=== PATIENT | female | born 1980 | race Caucasian/White ===

== ENCOUNTER 2016-09-19 14:11 | Emergency (ER) | payer MEDICARE ==
[2016-09-19] MEDS ORDERED: diphenhydrAMINE HCl 25 MG CAP ONE (14:32)
[2016-09-19] MEDS ORDERED: predniSONE 20 MG TAB ONE (14:32)
--- NOTE | 2016-09-19 14:59 | ERRECORD ---
[facility] EMERGENCY RECORD HPI RASH (14:[address] [facility]) CHIEF COMPLAINT: Patient presents for evaluation of pruritis, Patient presents for evaluation of rash. HISTORIAN: History provided by patient, 35F presents with complaints of rash. States that it has been present for the past 6 weeks, but worsened over the past 2-3 days. Describes nighttime pruritis, primarily over forearms and feet. Denies systemic complaints, denies fever or chills. LOCATION: Symptoms are generalized. QUALITY: Rash described as itchy, Rash described as macular. TIME COURSE: Gradual onset of symptoms, Symptoms are worsening. EXACERBATED BY: Patient's condition exacerbated by scratching. RELIEVED BY: Patient's condition relieved by nothing because patient has not tried anything for relief. ROS (14:34 [facility]) CONSTITUTIONAL: Negative constitutional review of systems, Historian denies chills, denies fever. EYES: Negative eye review of systems, Historian denies eye pain, denies vision changes. ENT: Negative ears, nose, throat review of systems, Historian denies rhinorrhea, denies sore throat, denies voice changes. CARDIOVASCULAR: Negative cardiovascular review of systems, Historian denies chest pain, denies palpitations. RESPIRATORY: Negative respiratory review of systems, Historian denies cough, denies shortness of breath. GI: Negative gastrointestinal review of systems, Historian denies abdominal pain, denies constipation, denies diarrhea, denies nausea, denies vomiting. GENITOURINARY FEMALE: Negative genitourinary review of systems, Historian denies dysuria, denies frequency. MUSCULOSKELETAL: Negative musculoskeletal review of systems, Historian denies back pain, denies fall, denies injury. SKIN: Historian reports rash. NEUROLOGIC: Negative neurologic review of systems, Historian denies headache, denies mental status changes, denies paralysis, denies paresthesias, denies sensory changes. HEMO/LYMPHATIC: Normal hematologic/lymphatic system review, Historian denies abnormal blood clotting. ALLERGIC/IMMUNOLOGIC: Normal allergy/immunologic system review, Historian denies frequent infections. PAST MEDICAL HISTORY (14:20 [facility]) MEDICAL HISTORY: Past medical history includes pulmonary disease, asthma. REVIEWED 06/15/16. asthma, chronic back pain verified 09/19/16. FEMALE SURGICAL HISTORY: Surgical history of cholecystectomy, Surgical history of spinal surgery, lumbar. REVIEWED 06/15/16. verified 09/19/16. &a-1R&a+25V*p+0X*b7888C*c202B*c15G*c2P*p-0X&a-25V&a+1R Name: Bethany Higuera : 1980 F35 MedRec: [id number] AcctNum: [id number] Prepared: SatSep 19, 2016 16:28 by Interface Page 1 of 4 pMD [facility] EMERGENCY RECORD PSYCHIATRIC HISTORY: Notes: H/O DEPRESSION. NO LONGER ON ZOLOFT. PATIENT REPORTS TO BEING COMMITTED FOR SUICIDAL IDEATION BUT PATIENT DENIES SUCH. NOT ON ANY PSYCH MEDS. verified 09/19/16. SOCIAL HISTORY: Patient denies alcohol use, Patient denies drug use, Patient has no smoking history. REVIEWED 06/15/16. verified 09/19/16. KNOWN ALLERGIES acetaminophen (Unconfirmed) Darvocet A500: Reaction: Hives, Severity: Severe, Source: Patient Demerol: Reaction: Nausea ketorolac tromethamine (Unconfirmed) lorazepam (Unconfirmed) meperidine HCl (Unconfirmed) propoxyphene napsylate (Unconfirmed) Toradol: Reaction: Hives, Severity: Severe, Source: Patient, - Heart races CURRENT MEDICATIONS No recorded medications VITAL SIGNS (14:15 [facility]) VITAL SIGNS: BP: 119/64, Pulse: 111, Resp: 16, Temp: 98.3 (Oral), Pain: 0, O2 sat: 97 on Room Air, Time: 09/19/2016 14:15. PHYSICAL EXAM (14:[address] [facility]) CONSTITUTIONAL: Vital signs reviewed, Patient afebrile, Pulse normal, Blood pressure normal, Respiratory rate normal, Patient appears non toxic, Patient appears pain free, Patient alert and oriented to person, place and time. HEAD: Head exam normal, Head exam included findings of head atraumatic, normocephalic. EYES: Eye exam normal, Eye exam included findings of eyelids normal to inspection, Pupils equally round and reactive to light, Extraocular muscles intact, no nystagmus. ENT: ENT exam normal, Ear exam normal, external ear normal, tympanic membranes normal, no bleeding, Pharynx exam normal, Uvula exam normal, Tonsil exam normal, Mouth exam normal, mucous membranes moist, teeth normal. NECK: Neck exam normal, Neck exam included findings of normal range of motion, Trachea midline, no meningeal signs, no cervical adenopathy, no tenderness. RESPIRATORY CHEST: Respiratory and chest exam normal, Respiratory exam included findings of no respiratory distress, Breath sounds clear. CARDIOVASCULAR: Cardiovascular assessment normal, Cardiovascular exam included findings of heart rate regular rate and rhythm, Heart sounds normal. ABDOMEN FEMALE: Abdominal exam included findings of abdomen nontender, Bowel sounds normal, no distension, no mass, no pulsatile &a-1R&a+25V*p+0X*a3553S*c202B*c15G*c2P*p-0X&a-25V&a+1R Name: Bethany Higuera : 1980 F35 MedRec: [id number] AcctNum: [id number] Prepared: SatSep 19, 2016 16:28 by Interface Page 2 of 4 pMD [facility] EMERGENCY RECORD masses, no peritoneal signs, no rigidity, no guarding, no rebound, Rovsing's sign absent. BACK: Back exam normal, Back exam included findings of normal inspection, range of motion normal, no tenderness. UPPER EXTREMITY: Upper extremity exam normal, Upper extremity exam included findings of inspection normal, Range of motion normal, Motor strength normal, Sensation intact, Radial pulse normal. LOWER EXTREMITY: Lower extremity exam normal, Lower extremity exam included findings of inspection normal, Range of motion normal, Motor strength normal, Sensation intact, Posterior tibial pulse normal, Pedal pulse normal. NEURO: Neuro exam normal, Neuro exam findings include patient oriented to person, place and time, Speech normal, Gait normal, Cranial nerves intact, no focal motor deficits, no focal sensory deficits. SKIN: Skin exam included findings of skin warm, dry, and normal in color, Rash present, macular, macular rash, no vesicles, no pustules, non erythematous base, no involvement of palms or soles, no mucus membrane involvement. PSYCHIATRIC: Psychiatric exam normal, Normal affect. MEDICATION ADMINISTRATION SUMMARY Drug Name: Benadryl oral, Dose Ordered: 25 mg, Route: Oral, Status: Given, Time: 14:37 09/19/2016, Drug Name: predniSONE oral, Dose Ordered: 60 mg, Route: Oral, Status: Given, Time: 14:37 09/19/2016, Detailed record available in Medication Service section. DOCTOR NOTES (14:[address] [facility]) TEXT: Patient presented with rash consistent with dermatitis/allergic reaction. I am unsure of the exact etiology of the reaction, but believe it is likely a medication, based on her history. No signs of systemic involvement or other underlying condition. No signs of infection or infestation. Will start antihistamines and short course of steroids. Appropriate for outpatient follow up. PATIENT STATUS: Patient has improved since arrival to emergency department. PATIENT PLAN: The patient will be discharged, The patient will follow up with primary care physician. PROBLEM LIST No recorded problems DIAGNOSIS (14:[address] [facility]) FINAL: PRIMARY: dermatitis. PRESCRIPTION (14:[address] [facility]) predniSONE oral: TABLET : 20 mg : ORAL : Quantity: 2 &a-1R&a+25V*p+0X*t9160B*c202B*c15G*c2P*p-0X&a-25V&a+1R Name: Kalen Bethany Alfred : 1980 5 MedRec: [id number] AcctNum: [id number] Prepared: SatSep 19, 2016 16:28 by Interface Page 3 of 4 pMD [facility] EMERGENCY RECORD Unit: tab(s) Route: ORAL Schedule: once a day (after a meal) Dispense: 8 May substitute. Refills: No Refills . NOTES: No refills. DISPOSITION PATIENT: Disposition Type: Discharge, Disposition: *Discharge Home. (14:[address] [facility]) Patient left the department. (14:54 [facility]) Severino: ROLY=JERAMIE Boudreaux, December [facility]=ANKIT Osorio, Hilda [facility]=MD Michelle, Avtar &a-1R&a+25V*p+0X*k7181A*c202B*c15G*c2P*p-0X&a-25V&a+1R Name: Bethany Higuera : 1980 F35 MedRec: [id number] AcctNum: [id number] Prepared: SatSep 19, 2016 16:28 by Interface Page 4 of 4 pMD MTDD
--- NOTE | 2016-09-19 15:05 | PICIS ---
[facility] EMERGENCY RECORD TRIAGE (SatSep 19, 2016 14:17 [facility]) TRIAGE NOTES: Pt reprots she has had an all over body rash for the past six weeks. (SatSep 19, 2016 14:17 [facility]) PATIENT: NAME: Bethany Higuera, AGE: 35, GENDER: female, : Sat 1980, TIME OF GREET: SatSep 19, 2016 14:12, PREFERRED LANGUAGE: Tajik, ETHNICITY: Not or , HIGH ALERT: HIGH ALERT 3, ECODE BILLING MAP: [facility], SSN: [id number], Zip Code: [address], KG WEIGHT: 54.43, PHONE: , , , PERSON ID: [id number], PAYMENT: [employer], PCP: DO CHAN JOHN SCOTT. (SatSep 19, 2016 14:17 [facility]) COMPLAINT: Rash. (SatSep 19, 2016 14:17 [facility]) ADMISSION: URGENCY: 4 Non Urgent, ADMISSION SOURCE: Home, TRANSPORT: CAR, BED: TRIAGE. (SatSep 19, 2016 14:17 [facility]) IMMUNIZATIONS: Flu vaccine up to date, Tetanus immunization up to date, Pneumococcal vaccine not up to date. (14:20 [facility]) SIRS SCORING: Heart Rate 110-139 (2), Temp range 96.8-101.1 (0), respiratory rate 12-24 (0), Mental Status altered: no (0), Total SIRS Score 2. (14:20 [facility]) TRIAGE SCREENING: Patient denies suicidal ideation, Patient denies presence of domestic violence. (14:20 [facility]) LMP: Last menstrual period: 08/29/2016. (14:20 [facility]) PROVIDERS: TRIAGE NURSE: Hilda Osorio RN. (SatSep 19, 2016 14:17 [facility]) VITAL SIGNS: BP 119/64, Pulse 111, Resp 16, Temp 98.3, (Oral), Pain 0, O2 Sat 97, on Room Air, Time 09/19/2016 14:15. (14:15 [facility]) KNOWN ALLERGIES acetaminophen (Unconfirmed) Darvocet A500: Reaction: Hives, Severity: Severe, Source: Patient Demerol: Reaction: Nausea ketorolac tromethamine (Unconfirmed) lorazepam (Unconfirmed) meperidine HCl (Unconfirmed) propoxyphene napsylate (Unconfirmed) Toradol: Reaction: Hives, Severity: Severe, Source: Patient, - Heart races CURRENT MEDICATIONS No recorded medications VITAL SIGNS (14:15 [facility]) VITAL SIGNS: BP: 119/64, Pulse: 111, Resp: 16, Temp: 98.3 (Oral), Pain: 0, O2 sat: 97 on Room Air, Time: 09/19/2016 14:15. NURSING ASSESSMENT: SKIN (14:47 [facility]) CONSTITUTIONAL: Complex assessment performed, Patient arrives ambulatory, Gait steady, History obtained from patient, Patient appears comfortable, Patient cooperative, Patient alert, Oriented to person, place and time, Skin warm, Skin dry, Skin normal in color, &a-1R&a+25V*p+0X*e6981K*c202B*c15G*c2P*p-0X&a-25V&a+1R Name: Bethany Higuera Alfred : 1980 F35 MedRec: [id number] AcctNum: [id number] Prepared: SatSep 19, 2016 16:34 by Interface Page 1 of 6 pMD [facility] EMERGENCY RECORD Mucous membranes pink, Mucous membranes moist, Patient complains of Rash, Rash all over body for the past six weeks which has worsened over the past two days. PAIN: 0. NONVERBAL PAIN: Non-Verbal pain assessment findings include: No non-verbal complaints while at rest (0), Non-Verbal complaints not present with movement (0), Facial Grimaces not present at rest (0), Facial grimaces not present with movement (0), Bracing not present at rest (0), Bracing not present with movement (0), Restlessness not present at rest (0), Restlessness not present with movement (0), Rubbing not present at rest (0), Rubbing not present with movement (0), Result: 0. SKIN: Skin assessment findings include skin warm, Skin dry, Skin normal in color, Inspection findings include no abrasions, Inspection findings include rash, red, macular, itchy, without drainage, to Diffuse, Rash is present all over body except on patients back, Inspection findings include no swelling. SAFETY: Side rails up, Cart/Stretcher in lowest position, Call light within reach, Hospital ID band on. NURSING PROCEDURE: DISCHARGE NOTE (14:45 [facility]) DISCHARGE: Patient discharged to home, ambulating without assistance, driving self, unaccompanied, Summary of Care printed/ provided, Transition record given to patient, Discharge instructions given to patient, Prescriptions given and instructions on side effects given, Above person(s) verbalized understanding of discharge instructions and follow-up care, Patient treated and evaluated by physician. MEDICATION ADMINISTRATION SUMMARY Drug Name: Benadryl oral, Dose Ordered: 25 mg, Route: Oral, Status: Given, Time: 14:37 09/19/2016, Drug Name: predniSONE oral, Dose Ordered: 60 mg, Route: Oral, Status: Given, Time: 14:37 09/19/2016, Detailed record available in Medication Service section. MEDICATION SERVICE (14:37 [facility]) Benadryl oral: Order: Benadryl oral (diphenhydramine HCl) - Dose: 25 mg : Oral Ordered by: Avtar Martinez MD Entered by: Avtar Martinez MD SatSep 19, 2016 14:29 , Acknowledged by: Hilda Osorio RN SatSep 19, 2016 14:31 Documented as given by: Makeda Boudreaux LVN SatSep 19, 2016 14:37 Patient, Medication, Dose, Route and Time verified prior to administration. Amount given: 25mg, Correct patient, time, route, dose and medication confirmed prior to administration, Patient advised of actions and side-effects prior to administration, Allergies confirmed &a-1R&a+25V*p+0X*m9310J*c202B*c15G*c2P*p-0X&a-25V&a+1R Name: KalenBethany Alfred : 1980 F35 MedRec: [id number] AcctNum: [id number] Prepared: SatSep 19, 2016 16:34 by Interface Page 2 of 6 pMD [facility] EMERGENCY RECORD and medications reviewed prior to administration, Patient in position of comfort, Side rails up, Cart in lowest position, Family at bedside. predniSONE oral: Order: predniSONE oral (prednisone) - Dose: 60 mg : Oral Ordered by: Avtar Martinez MD Entered by: Avtar Martinez MD SatSep 19, 2016 14:30 , Acknowledged by: Hilda Osorio RN SatSep 19, 2016 14:31 Documented as given by: Makeda PerezJERAMIE valdez SatSep 19, 2016 14:37 Patient, Medication, Dose, Route and Time verified prior to administration. Amount given: 60mg, Correct patient, time, route, dose and medication confirmed prior to administration, Patient advised of actions and side-effects prior to administration, Allergies confirmed and medications reviewed prior to administration, Patient in position of comfort, Side rails up, Cart in lowest position, Family at bedside. HPI RASH (14:32 [facility]) CHIEF COMPLAINT: Patient presents for evaluation of pruritis, Patient presents for evaluation of rash. HISTORIAN: History provided by patient, 35F presents with complaints of rash. States that it has been present for the past 6 weeks, but worsened over the past 2-3 days. Describes nighttime pruritis, primarily over forearms and feet. Denies systemic complaints, denies fever or chills. LOCATION: Symptoms are generalized. QUALITY: Rash described as itchy, Rash described as macular. TIME COURSE: Gradual onset of symptoms, Symptoms are worsening. EXACERBATED BY: Patient's condition exacerbated by scratching. RELIEVED BY: Patient's condition relieved by nothing because patient has not tried anything for relief. ROS (14:34 [facility]) CONSTITUTIONAL: Negative constitutional review of systems, Historian denies chills, denies fever. EYES: Negative eye review of systems, Historian denies eye pain, denies vision changes. ENT: Negative ears, nose, throat review of systems, Historian denies rhinorrhea, denies sore throat, denies voice changes. CARDIOVASCULAR: Negative cardiovascular review of systems, Historian denies chest pain, denies palpitations. RESPIRATORY: Negative respiratory review of systems, Historian denies cough, denies shortness of breath. GI: Negative gastrointestinal review of systems, Historian denies abdominal pain, denies constipation, denies diarrhea, denies nausea, denies vomiting. GENITOURINARY FEMALE: Negative genitourinary review of systems, Historian denies dysuria, denies frequency. &a-1R&a+25V*p+0X*n4964A*c202B*c15G*c2P*p-0X&a-25V&a+1R Name: Bethany Higuera : 1980 F35 MedRec: [id number] AcctNum: [id number] Prepared: SatSep 19, 2016 16:34 by Interface Page 3 of 6 pMD [facility] EMERGENCY RECORD MUSCULOSKELETAL: Negative musculoskeletal review of systems, Historian denies back pain, denies fall, denies injury. SKIN: Historian reports rash. NEUROLOGIC: Negative neurologic review of systems, Historian denies headache, denies mental status changes, denies paralysis, denies paresthesias, denies sensory changes. HEMO/LYMPHATIC: Normal hematologic/lymphatic system review, Historian denies abnormal blood clotting. ALLERGIC/IMMUNOLOGIC: Normal allergy/immunologic system review, Historian denies frequent infections. PAST MEDICAL HISTORY (14:20 [facility]) MEDICAL HISTORY: Past medical history includes pulmonary disease, asthma. REVIEWED 06/15/16. asthma, chronic back pain verified 09/19/16. FEMALE SURGICAL HISTORY: Surgical history of cholecystectomy, Surgical history of spinal surgery, lumbar. REVIEWED 06/15/16. verified 09/19/16. PSYCHIATRIC HISTORY: Notes: H/O DEPRESSION. NO LONGER ON ZOLOFT. PATIENT REPORTS TO BEING COMMITTED FOR SUICIDAL IDEATION BUT PATIENT DENIES SUCH. NOT ON ANY PSYCH MEDS. verified 09/19/16. SOCIAL HISTORY: Patient denies alcohol use, Patient denies drug use, Patient has no smoking history. REVIEWED 06/15/16. verified 09/19/16. PHYSICAL EXAM (14:34 [facility]) CONSTITUTIONAL: Vital signs reviewed, Patient afebrile, Pulse normal, Blood pressure normal, Respiratory rate normal, Patient appears non toxic, Patient appears pain free, Patient alert and oriented to person, place and time. HEAD: Head exam normal, Head exam included findings of head atraumatic, normocephalic. EYES: Eye exam normal, Eye exam included findings of eyelids normal to inspection, Pupils equally round and reactive to light, Extraocular muscles intact, no nystagmus. ENT: ENT exam normal, Ear exam normal, external ear normal, tympanic membranes normal, no bleeding, Pharynx exam normal, Uvula exam normal, Tonsil exam normal, Mouth exam normal, mucous membranes moist, teeth normal. NECK: Neck exam normal, Neck exam included findings of normal range of motion, Trachea midline, no meningeal signs, no cervical adenopathy, no tenderness. RESPIRATORY CHEST: Respiratory and chest exam normal, Respiratory exam included findings of no respiratory distress, Breath sounds clear. CARDIOVASCULAR: Cardiovascular assessment normal, Cardiovascular exam included findings of heart rate regular rate and rhythm, Heart sounds normal. ABDOMEN FEMALE: Abdominal exam included findings of abdomen nontender, Bowel sounds normal, no distension, no mass, no pulsatile &a-1R&a+25V*p+0X*p8408Q*c202B*c15G*c2P*p-0X&a-25V&a+1R Name: Bethany Higuera : 1980 F35 MedRec: [id number] AcctNum: [id number] Prepared: SatSep 19, 2016 16:34 by Interface Page 4 of 6 pMD [facility] EMERGENCY RECORD masses, no peritoneal signs, no rigidity, no guarding, no rebound, Rovsing's sign absent. BACK: Back exam normal, Back exam included findings of normal inspection, range of motion normal, no tenderness. UPPER EXTREMITY: Upper extremity exam normal, Upper extremity exam included findings of inspection normal, Range of motion normal, Motor strength normal, Sensation intact, Radial pulse normal. LOWER EXTREMITY: Lower extremity exam normal, Lower extremity exam included findings of inspection normal, Range of motion normal, Motor strength normal, Sensation intact, Posterior tibial pulse normal, Pedal pulse normal. NEURO: Neuro exam normal, Neuro exam findings include patient oriented to person, place and time, Speech normal, Gait normal, Cranial nerves intact, no focal motor deficits, no focal sensory deficits. SKIN: Skin exam included findings of skin warm, dry, and normal in color, Rash present, macular, macular rash, no vesicles, no pustules, non erythematous base, no involvement of palms or soles, no mucus membrane involvement. PSYCHIATRIC: Psychiatric exam normal, Normal affect. EVENTS TRANSFER: Triage to Emergency Triage. (SatSep 19, 2016 14:17 [facility]) Emergency Triage to Emergency Room -02. (14:18 [facility]) Removed from Emergency Emergency Room -02. (14:54 [facility]) DOCTOR NOTES (14:36 [facility]) TEXT: Patient presented with rash consistent with dermatitis/allergic reaction. I am unsure of the exact etiology of the reaction, but believe it is likely a medication, based on her history. No signs of systemic involvement or other underlying condition. No signs of infection or infestation. Will start antihistamines and short course of steroids. Appropriate for outpatient follow up. PATIENT STATUS: Patient has improved since arrival to emergency department. PATIENT PLAN: The patient will be discharged, The patient will follow up with primary care physician. PROBLEM LIST No recorded problems DIAGNOSIS (14:38 [facility]) FINAL: PRIMARY: dermatitis. DISPOSITION PATIENT: Disposition Type: Discharge, Disposition: *Discharge Home. (14:38 [facility]) Patient left the department. (14:54 [facility]) &a-1R&a+25V*p+0X*x6599T*c202B*c15G*c2P*p-0X&a-25V&a+1R Name: Bethany Higuera : 1980 F35 MedRec: [id number] AcctNum: [id number] Prepared: SatSep 19, 2016 16:34 by Interface Page 5 of 6 pMD [facility] EMERGENCY RECORD INSTRUCTION (14:39 [facility]) DISCHARGE: ALLERGIC REACTION, DRUG. FOLLOWUP: DO ROCIO, MARCO COLÓN, Family Practice, [address] [place] [address], . SPECIAL: Benadryl at night, Claritin during the day for itching. Follow up with Dr. Chan and Dermatology next available appointment. PRESCRIPTION (14:39 [facility]) predniSONE oral: TABLET : 20 mg : ORAL : Quantity: 2 Unit: tab(s) Route: ORAL Schedule: once a day (after a meal) Dispense: 8 May substitute. Refills: No Refills . NOTES: No refills. IMAGING *DISCHARGE INSTRUCTIONS RECEIPT: Image captured from scanner. (14:53 [facility]) *SUPPLY CHARGE SHEET: Image captured from scanner. (14:54 [facility]) ADMIN (16:25 [facility]) DIGITAL SIGNATURE: MD Martinez Jason. Severino: AHOO=JERAMIE Boudreaux, December CTUR=ANKIT Osorio, Hilda [facility]=MD Martinez Jason &a-1R&a+25V*p+0X*b6491D*c202B*c15G*c2P*p-0X&a-25V&a+1R Name: Bethany Higuera : 1980 F35 MedRec: [id number] AcctNum: [id number] Prepared: SatSep 19, 2016 16:34 by Interface Page 6 of 6 pMD MTDD
== END 2016-09-19 14:45 | disposition home or self-care (01) ==
LOC: BURERS 14:11
DX: L30.9 Dermatitis, unspecified (principal); J45.909 Unspecified asthma, uncomplicated; F32.9 Major depressive disorder, single episode, unspecified
CPT/HCPCS: 99282; J7506

== ENCOUNTER 2016-12-07 19:24 | Emergency (ER) | payer MEDICARE ==
[2016-12-07] MEDS ORDERED: ALPRAZolam 0.5 MG TAB ONE ×2 (19:44→20:44)
[2016-12-07 19:59] LABS: Bacteria/HPF Rare-Few HPF (None Seen); Bilirubin Negative (Negative); Blood, Urine Negative (Negative); Clarity Clear (Clear); Glucose, Urine (Dipstick) Negative (Negative); Leukocyte Small (Negative); Nitrite Negative (Negative); Protein, Urine (Dipstick) Negative (Neg-Trace); RBC/HPF 0-3 HPF (0-3); Specific Gravity, Urine 1.028 (1.002-1.036); pH, Urine 7.5 (5.0-9.0)
[2016-12-07 20:03] LABS: Amphetamine Not Detected (NotDetected); Barbiturates Screen Not Detected (NotDetected); Benzodiazepine Screen Not Detected (NotDetected); Cocaine Metabolite Screen Not Detected (NotDetected); Medtox Control Line Valid? VALID (VALID); Methadone Not Detected (NotDetected); Methamphetamine Not Detected (NotDetected); Opiate Screen Detected (NotDetected); Oxycodone Screen Not Detected (NotDetected); Phencyclidine (PCP) Not Detected (NotDetected); THC/Cannabinoid Screen Not Detected (NotDetected); Tricyclic Screen Not Detected (NotDetected)
[2016-12-07 20:09] LABS: #Basophils 0.1 thou/uL (0.0-0.2); #Eosinphils 0.1 thou/uL (0.0-0.7); #Monocytes 0.4 thou/uL (0.11-0.59); #Neutrophils 2.2 thou/uL (1.40-6.50); %Basophils 1.5 % (0.0-1.0); %Eosinophils 2.9 % (0.0-10.0); %Lymphocytes 40.6 % (21.0-51.0); %Monocytes 9.1 % (0.0-10.0); Hemoglobin 14.2 g/dL (12.0-16.0); Mean Corpuscular HGB CONC 34.1 g/dL (32.0-36.0); Mean Corpuscular Hemoglobin 30.3 pg (27.0-31.0); Mean Corpuscular Volume 89.1 fl (81.0-99.0); Mean Platelet Volume 8.1 fL (7.4-10.4); Platelet Count 191 thou/uL (130-400); RBC Distribution Width 11.9 % (11.5-14.5); Red Blood Cell (RBC) Count 4.69 mill/uL (4.20-5.40); White Blood Cell (WBC) Count 4.8 thou/uL (4.8-10.8)
[2016-12-07 20:26] LABS: ALT (SGPT) 15 U/L (0-55); AST (SGOT) 20 U/L (5-34); Albumin 4.5 g/dL (3.5-5.0); Alkaline Phosphatase 90 U/L (40-150); Anion Gap 15 mmol/L (10-20); BUN (Urea Nitrogen) 11 mg/dL (7.0-18.7); Bilirubin, Total 0.5 mg/dL (0.2-1.2); Calc. Creatinine Clearance 0 mL/min (70-130); Calcium 9.7 mg/dL (7.8-10.44); Carbon Dioxide 19 mmol/L (22-29); Chloride 110 mmol/L (98-107); Estimated GFR-MDRD 80; Globulin 2.7 g/dL (2.4-3.5); Glucose 77 mg/dL (70-105); Potassium 3.7 mmol/L (3.5-5.1); Protein, Total 7.2 g/dL (6.0-8.3); Sodium 140 mmol/L (136-145)
[2016-12-07 20:33] LABS: CKMB 2.2 ng/mL (0-6.6); Troponin I Less than 0.010 ng/mL (< 0.028)
[2016-12-07] MEDS ORDERED: methylPREDNISolone Sod Succ/PF 125 MG/2 ML VIAL ONE (21:04)
--- NOTE | 2016-12-07 22:00 | RAD ---
PORTABLE CHEST 12/07/16 Comparison is made with the 02/02/16 study. There has been no adverse interval change. The heart is normal in size and the lungs are clear. No i nfiltrate or effusion was seen. There is no vascular congestion or edema. IMPRESSION: No acute thoracic findings. POS: HOME
== END 2016-12-07 21:20 | disposition home or self-care (01) ==
LOC: BURERS 19:24
DX: F41.9 Anxiety disorder, unspecified (principal); J45.909 Unspecified asthma, uncomplicated; F32.9 Major depressive disorder, single episode, unspecified; Z79.899 Other long term (current) drug therapy
CPT/HCPCS: 71010; 80053; 80306; 81003; 81015; 82553; 84484; 85025; 85379; 93005; 96374; J2930

== ENCOUNTER 2017-01-10 13:04 | Emergency (ER) | payer MEDICARE | END 2017-01-10 13:50 | disposition home or self-care (01) | LOC: BURERS 13:04 | DX: J02.9 Acute pharyngitis, unspecified (principal); J31.0 Chronic rhinitis; J45.909 Unspecified asthma, uncomplicated; F32.9 Major depressive disorder, single episode, unspecified; Z79.899 Other long term (current) drug therapy | CPT/HCPCS: 99282 ==

== ENCOUNTER 2017-01-18 15:50 | Emergency (ER) | payer MEDICARE ==
[2017-01-18] MEDS ORDERED: Albuterol Sulfate 1.25 MG/3 ML NEB ONE (16:12)
[2017-01-18] MEDS ORDERED: methylPREDNISolone Sod Succ/PF 125 MG/2 ML VIAL ONE (16:22)
[2017-01-18] MEDS ORDERED: Azithromycin 250 MG TAB ONE (16:41)
--- NOTE | 2017-01-18 17:37 | RAD ---
CHEST TWO VIEWS 01/18/17 Comparison is made with a 12/07 study. The heart is normal in size and the lungs are clear. No infiltrate, effusion or vascular congestion was seen. There has been no adverse change since the prior study. Rods are seen in the spine as usua l. IMPRESSION: No acute thoracic findings. POS: HOME
== END 2017-01-18 17:06 | disposition home or self-care (01) ==
LOC: BURERS 15:50
DX: J20.9 Acute bronchitis, unspecified (principal); J45.909 Unspecified asthma, uncomplicated; F41.9 Anxiety disorder, unspecified; F32.9 Major depressive disorder, single episode, unspecified; Z79.891 Long term (current) use of opiate analgesic; Z79.899 Other long term (current) drug therapy
CPT/HCPCS: 71020; 94640; 94760; 96372; J2930; J7620

== ENCOUNTER 2017-01-23 05:29 | Emergency (ER) | payer MEDICARE ==
[2017-01-23] MEDS ORDERED: Ondansetron ODT 4 MG TAB ONE (05:38)
[2017-01-23 06:31] LABS: #Basophils 0.1 thou/uL (0.0-0.2); #Lymphocytes 2.5 thou/uL (1.20-3.40); #Monocytes 0.8 thou/uL (0.11-0.59); #Neutrophils 4.5 thou/uL (1.40-6.50); %Basophils 0.7 % (0.0-1.0); %Eosinophils 0.4 % (0.0-10.0); %Lymphocytes 31.9 % (21.0-51.0); Hemoglobin 13.5 g/dL (12.0-16.0); Mean Corpuscular HGB CONC 34.7 g/dL (32.0-36.0); Mean Corpuscular Hemoglobin 30.5 pg (27.0-31.0); Mean Corpuscular Volume 87.9 fl (81.0-99.0); Platelet Count 140 thou/uL (130-400); RBC Distribution Width 11.7 % (11.5-14.5); Red Blood Cell (RBC) Count 4.42 mill/uL (4.20-5.40); White Blood Cell (WBC) Count 7.9 thou/uL (4.8-10.8)
[2017-01-23 06:45] LABS: ALT (SGPT) 16 U/L (8-55); AST (SGOT) 13 U/L (5-34); Alkaline Phosphatase 83 U/L (40-150); Anion Gap 14 mmol/L (10-20); BUN (Urea Nitrogen) 12 mg/dL (7.0-18.7); Bilirubin, Total 0.6 mg/dL (0.2-1.2); Calc. Creatinine Clearance 0 mL/min (70-130); Calcium 9.2 mg/dL (7.8-10.44); Carbon Dioxide 21 mmol/L (22-29); Chloride 110 mmol/L (98-107); Estimated GFR-MDRD 89; Globulin 2.6 g/dL (2.4-3.5); Glucose 93 mg/dL (70-105); Lipase 30 U/L (8-78); Potassium 3.3 mmol/L (3.5-5.1); Protein, Total 6.6 g/dL (6.0-8.3); Sodium 142 mmol/L (136-145)
[2017-01-23 06:46] LABS: Bilirubin Negative (Negative); Blood, Urine Negative (Negative); Clarity Slightly Cloudy (Clear); Glucose, Urine (Dipstick) Negative (Negative); Leukocyte Negative (Negative); Nitrite Negative (Negative); Protein, Urine (Dipstick) Negative (Neg-Trace); Specific Gravity, Urine 1.025 (1.005-1.030); Urobilinogen 0.2 mg/dL (0.2-1.0)
[2017-01-23 06:50] LABS: Pregnancy Test - Urine (BHCG) NEGATIVE (NEGATIVE); Pregu Control Bar Appear? YES (CONTROL BAR); Specific Gravity 1.025 (1.002-1.036)
--- NOTE | 2017-01-23 21:34 | CT ---
PRELIMINARY REPORT/[facility]/EMERGENCY AFTER HOURS PROCEDURE: EXAM: CT Abdomen and Pelvis With Intravenous Contrast CLINICAL HISTORY: 36 years old, female; Pain; Abdominal pain; Localized; Right lower quadrant (rlq); Prior surgery; Matias rgery date: 6+ months; Surgery type: Back TECHNIQUE: Axial computed tomography images of the abdomen and pelvis with intravenous contrast. This CT exam w as performed using one or more of the following dose reduction techniques: automated exposure contro l, adjustment of the mA and/or kV according to patient size, and/or use of iterative reconstruction technique. Coronal and sagittal reformatted images were created and reviewed. EXAM DATE/TIME: 01/23/2017 7:00 AM COMPARISON: No relevant prior studies available. FINDINGS: Lower thorax: There is minimal streaky consolidation at the lung bases. This probably represents ate lectasis. ABDOMEN: Liver: The liver is mildly enlarged, measuring 19 cm in length. No acute changes or focal lesions. Gallbladder and bile ducts: Unremarkable. No calcified stones. No ductal dilation. Pancreas: The pancreas is atrophic. The pancreas is otherwise without acute change or focal lesion. No ductal dilation. Spleen: Unremarkable. No splenomegaly. Adrenals: Unremarkable. No mass. Kidneys and ureters: Unremarkable. No solid mass. No hydronephrosis. Stomach and bowel: Unremarkable. No obstruction. No mucosal thickening. Appendix: The appendix is identified and normal in caliber. No periappendiceal inflammatory changes. PELVIS: Bladder: Unremarkable. No mass. Reproductive: There is a 3 cm left ovarian cyst. There is a 3 cm right ovarian cyst. The uterus is without focal lesion or acute change. ABDOMEN and PELVIS: Intraperitoneal space: Unremarkable. No free air. No significant fluid collection. Bones/joints: There are surgical changes of the lumbar spine. No fractures or dislocations. Soft tissues: Unremarkable. Vasculature: Unremarkable. No abdominal aortic aneurysm. Lymph nodes: Unremarkable. No enlarged lymph nodes. IMPRESSION: 1. Mild nonspecific hepatomegaly. 2. Ovarian cysts. If clinical concern exists, further evaluation with pelvic ultrasound is recommend ed. 3. No other acute changes in the abdomen or pelvis. Thank you for allowing us to participate in the care of your patient. Dictated and Authenticated by: Rafael Osorio MD 01/23/2017 7:46 AM Central Time ([place] \T\ [facility]) FINAL REPORT CT ABDOMEN AND PELVIS WITH CONTRAST 01/23/17 Comparison is made with the scan done last year on 02/02/16. Axial slices were acquired after giving IV contrast. No oral contrast was given. Ring artifact and s treak artifact is present from the patient's spinal rods which degrades the images in some places. S ome areas of scarring are seen in the lung bases. No acute infiltrate or effusion was appreciated. T he liver, spleen, pancreas, abdominal aorta and kidneys were within normal limits given the decrease in sensitivity from artifact. The liver is perhaps a little more generous than usual but no differe nt than before. the adrenal glands are difficult to see well. The bowel is nondistended. There is no sign of obstruction. The appendix appears normal. There are n o inflammatory changes, free air of free fluid. CT of the pelvis shows cyst in each adnexa. At least two are seen in the left adnexal region that ar e about 3 cm each in size and one is seen on the right side measuring about 2.8 cm. There is no subs tantial free fluid. No inflammatory changes are seen in the pelvis. IMPRESSION: Bilateral adnexal cysts, a little more so on the left than the right. There were no acute findings o therwise. Report in agreement with preliminary reading by Emmie. POS: HOME
== END 2017-01-23 07:58 | disposition home or self-care (01) ==
LOC: BURERS 05:29
DX: R11.2 Nausea with vomiting, unspecified (principal); J45.909 Unspecified asthma, uncomplicated; F41.9 Anxiety disorder, unspecified; F32.9 Major depressive disorder, single episode, unspecified
CPT/HCPCS: 36415; 74177; 80053; 81003; 81025; 83690; 85025; Q0162

== ENCOUNTER 2017-04-25 02:52 | Emergency (ER) | payer MEDICARE ==
[2017-04-25] MEDS ORDERED: Ondansetron ODT 4 MG TAB ONE (03:16)
[2017-04-25 03:22] LABS: Blood, Urine Negative (Negative); Glucose, Urine (Dipstick) Negative (Negative); Leukocyte Trace (Negative); Nitrite Negative (Negative); Protein, Urine (Dipstick) Negative (Neg-Trace); Specific Gravity, Urine 1.025 (1.005-1.030); pH, Urine 6.5 (5.0-9.0)
[2017-04-25 03:23] LABS: Bilirubin Negative (Negative); Clarity Hazy (Clear)
[2017-04-25 03:24] LABS: Pregnancy Test - Urine (BHCG) Negative (Negative); Pregu Control Background? CLEAR/WHITE (CLR/WHITE); Pregu Control Bar Appear? YES (CONTROL BAR); Specific Gravity 1.026 (1.002-1.036)
[2017-04-25 03:38] LABS: Bacteria/HPF 1+ HPF (None Seen); Other Microscopic Description 1+ MUCUS; RBC/HPF 0-3 HPF (0-3); WBC/HPF 0-3 HPF (0-3)
[2017-04-25 03:51] LABS: #Basophils 0.1 thou/uL (0.0-0.2); #Eosinphils 0.2 thou/uL (0.0-0.7); #Lymphocytes 2.6 thou/uL (1.20-3.40); #Monocytes 0.7 thou/uL (0.11-0.59); #Neutrophils 2.4 thou/uL (1.40-6.50); %Basophils 1.1 % (0.0-1.0); %Eosinophils 2.7 % (0.0-10.0); %Lymphocytes 43.3 % (21.0-51.0); %Monocytes 11.8 % (0.0-10.0); %Neutrophils 41.1 % (42.0-75.0); Hemoglobin 14.7 g/dL (12.0-16.0); Mean Corpuscular HGB CONC 35.2 g/dL (32.0-36.0); Mean Corpuscular Hemoglobin 31.2 pg (27.0-31.0); Mean Corpuscular Volume 88.8 fl (81.0-99.0); Mean Platelet Volume 7.5 fL (7.4-10.4); Platelet Count 188 thou/uL (130-400); RBC Distribution Width 12.3 % (11.5-14.5); Red Blood Cell (RBC) Count 4.71 mill/uL (4.20-5.40); White Blood Cell (WBC) Count 5.9 thou/uL (4.8-10.8)
[2017-04-25 04:00] LABS: ALT (SGPT) 34 U/L (8-55); AST (SGOT) 24 U/L (5-34); Albumin 4.5 g/dL (3.5-5.0); Alkaline Phosphatase 109 U/L (40-150); Anion Gap 16 mmol/L (10-20); BUN (Urea Nitrogen) 12 mg/dL (7.0-18.7); Bilirubin, Total 1.4 mg/dL (0.2-1.2); Calc. Creatinine Clearance 0 mL/min (70-130); Calcium 9.8 mg/dL (7.8-10.44); Carbon Dioxide 17 mmol/L (22-29); Chloride 109 mmol/L (98-107); Estimated GFR-MDRD 79; Glucose 92 mg/dL (70-105); Lipase 39 U/L (8-78); Potassium 3.2 mmol/L (3.5-5.1); Protein, Total 7.5 g/dL (6.0-8.3); Sodium 139 mmol/L (136-145)
[2017-04-25] MEDS ORDERED: Hydrocodone-Acetamin 15 ML UDCUP ONE (04:16)
--- NOTE | 2017-04-25 07:34 | RAD ---
ABDOMEN 1 VIEW: Date: 04/25/17 A single view of the abdomen was provided. Extensive spinal surgery is evident centrally. The abdomi nal gas pattern is within normal limits. There are no distended loops of bowel to suggest obstructio n. I am not impressed by any excessive amount of fecal material in the colon. There has probably bee n a prior cholecystectomy judging by a clip in the right upper quadrant. No calcifications of concer n seen. IMPRESSION: No acute abdominal findings. POS: HOME
== END 2017-04-25 04:20 | disposition home or self-care (01) ==
LOC: BURERS 02:52
DX: F11.23 Opioid dependence with withdrawal (principal); J45.909 Unspecified asthma, uncomplicated; F41.9 Anxiety disorder, unspecified; F32.9 Major depressive disorder, single episode, unspecified
CPT/HCPCS: 74000; 80053; 81003; 81015; 81025; 83690; 85025; Q0162

== ENCOUNTER 2017-04-27 03:49 | Observation (INO) | payer MEDICARE ==
[2017-04-27] MEDS ORDERED: Ondansetron ODT 4 MG TAB ONE (04:40)
[2017-04-27 04:50] LABS: #Basophils 0.1 thou/uL (0.0-0.2); #Lymphocytes 3.1 thou/uL (1.20-3.40); #Monocytes 1.6 thou/uL (0.11-0.59); #Neutrophils 9.8 thou/uL (1.40-6.50); %Basophils 0.7 % (0.0-1.0); %Eosinophils 0.1 % (0.0-10.0); %Neutrophils 67.3 % (42.0-75.0); Hemoglobin 16.7 g/dL (12.0-16.0); Mean Corpuscular HGB CONC 35.1 g/dL (32.0-36.0); Mean Corpuscular Hemoglobin 31.2 pg (27.0-31.0); Mean Corpuscular Volume 88.9 fl (81.0-99.0); Mean Platelet Volume 7.4 fL (7.4-10.4); Platelet Count 287 thou/uL (130-400); RBC Distribution Width 11.9 % (11.5-14.5); Red Blood Cell (RBC) Count 5.36 mill/uL (4.20-5.40); White Blood Cell (WBC) Count 14.5 thou/uL (4.8-10.8)
[2017-04-27] MEDS ORDERED: Ondansetron HCl/PF 4 MG/2 ML Vial ONE (04:55)
[2017-04-27 05:08] LABS: ALT (SGPT) 89 U/L (8-55); AST (SGOT) 135 U/L (5-34); Albumin 4.9 g/dL (3.5-5.0); Alkaline Phosphatase 124 U/L (40-150); Anion Gap 23 mmol/L (10-20); BUN (Urea Nitrogen) 48 mg/dL (7.0-18.7); Bilirubin, Total 2.5 mg/dL (0.2-1.2); Calc. Creatinine Clearance 0 mL/min (70-130); Carbon Dioxide 17 mmol/L (22-29); Chloride 101 mmol/L (98-107); Estimated GFR-MDRD 20; Globulin 3.5 g/dL (2.4-3.5); Glucose 121 mg/dL (70-105); Lipase 183 U/L (8-78); Potassium 3.8 mmol/L (3.5-5.1); Protein, Total 8.4 g/dL (6.0-8.3); Sodium 137 mmol/L (136-145)
[2017-04-27 06:05] LABS: Amphetamine Not Detected (NotDetected); Barbiturates Screen Not Detected (NotDetected); Benzodiazepine Screen Not Detected (NotDetected); Cocaine Metabolite Screen Not Detected (NotDetected); Medtox Control Line Valid? VALID (VALID); Methadone Not Detected (NotDetected); Methamphetamine Detected (NotDetected); Opiate Screen Detected (NotDetected); Oxycodone Screen Not Detected (NotDetected); Phencyclidine (PCP) Not Detected (NotDetected); Pregnancy Test - Urine (BHCG) Negative (Negative); Pregu Control Background? CLEAR/WHITE (CLR/WHITE); Pregu Control Bar Appear? YES (CONTROL BAR); THC/Cannabinoid Screen Not Detected (NotDetected); Tricyclic Screen Not Detected (NotDetected)
[2017-04-27 06:06] LABS: Clarity Hazy (Clear); Glucose, Urine (Dipstick) 100 mg/dL (Negative); Leukocyte Negative (Negative); Nitrite Negative (Negative); Protein, Urine (Dipstick) 100 mg/dL (Neg-Trace)
[2017-04-27 06:07] LABS: Bacteria/HPF 1+ HPF (None Seen); Bilirubin Large (Negative); Blood, Urine Negative (Negative); Crystals/HPF 1+ AMORPH PHOS HPF (Negative)
[2017-04-27] MEDS ORDERED: Prochlorperazine 10 MG/2 ML VIAL ONE (07:00)
[2017-04-27 08:05] LABS: Band 1 % (5-11); Eosinophils 3 % (0-10); Hemoglobin 13.7 g/dL (12.0-16.0); Lymphocytes 23 % (21-51); MDiff Complete? YES; Mean Corpuscular HGB CONC 35.7 g/dL (32.0-36.0); Mean Corpuscular Hemoglobin 31.4 pg (27.0-31.0); Mean Corpuscular Volume 88.1 fl (81.0-99.0); Monocytes 6 % (0-10); Neutrophil 67 % (42-75); Platelet Count 182 thou/uL (130-400); RBC Distribution Width 11.8 % (11.5-14.5); Red Blood Cell (RBC) Count 4.34 mill/uL (4.20-5.40); White Blood Cell (WBC) Count 11.6 thou/uL (4.8-10.8)
[2017-04-27 08:17] LABS: Anion Gap 18 mmol/L (10-20)
[2017-04-27 08:19] LABS: ALT (SGPT) 82 U/L (8-55); AST (SGOT) 130 U/L (5-34); Alkaline Phosphatase 100 U/L (40-150); BUN (Urea Nitrogen) 46 mg/dL (7.0-18.7); Bilirubin, Total 2.4 mg/dL (0.2-1.2); CK (CPK) 873 U/L (29-168); Calc. Creatinine Clearance 0 mL/min (70-130); Calcium 8.3 mg/dL (7.8-10.44); Carbon Dioxide 18 mmol/L (22-29); Chloride 108 mmol/L (98-107); Estimated GFR-MDRD 26; Globulin 2.6 g/dL (2.4-3.5); Glucose 107 mg/dL (70-105); Potassium 3.7 mmol/L (3.5-5.1); Protein, Total 6.6 g/dL (6.0-8.3); Sodium 140 mmol/L (136-145)
--- NOTE | 2017-04-27 09:25 | CT ---
PRELIMINARY REPORT/[facility]/EMERGENCY AFTER HOURS PROCEDURE: EXAM: CT Abdomen and Pelvis Without Intravenous Contrast CLINICAL HISTORY: The patient is a 36 years female; Pain and signs and symptoms; Nausea and vomiting and other: Mid ab dominal pain, flank pain x three days; Patient HX: Mid abdominal pain x three days, n/v. HX: Cholecy stectomy. ; Additional info: Pt weanig self off of narcotics for chronic pain managemrent issues states last dose 2 wks ago but has had protracted n/v for 3 days. TECHNIQUE: Axial computed tomography images of the abdomen and pelvis without intravenous contrast. All CT scan s at this facility use one or more dose reduction techniques, viz.: automated exposure control; ma/k V adjustment per patient size (including targeted exams where dose is matched to indication; i.e. he ad); or iterative reconstruction technique. Coronal reformatted images were created and reviewed. COMPARISON: Report only from CT abdomen pelvis January 23, 2017 FINDINGS: Artifacts: Artifact related to spinal hardware. Lower thorax: Linear right lower lobe atelectasis/scarring. No acute findings within the included lo wer thorax. ABDOMEN: Liver: Unremarkable. Gallbladder and bile ducts: Cholecystectomy clips. Pancreas: Unremarkable. No ductal dilation. Spleen: Unremarkable. No splenomegaly. Adrenals: Unremarkable. No mass. Kidneys and ureters: No visualized renal or ureteral calculi. No hydroureteronephrosis. Stomach and bowel: Unremarkable. No obstruction. No obvious inflammation. Appendix: No findings to suggest acute appendicitis. PELVIS: Bladder: The bladder is nearly empty. No stones. Reproductive: Bilateral fluid density adnexal cysts, 3.3 cm on the right (image 62 series 2) and 1.6 cm on the left. ABDOMEN and PELVIS: Intraperitoneal space: Unremarkable. No free air. No significant fluid collection. Bones/joints: Partially imaged extensive thoracolumbar fusion hardware. Soft tissues: Unremarkable. Vasculature: Unremarkable. No abdominal aortic aneurysm. Lymph nodes: Unremarkable. No enlarged lymph nodes. IMPRESSION: 1. 3.3 cm right adnexal cystic lesion most likely represents functional ovarian cyst. Similar 1.6 cm cyst on the left. 2. Artifact related to spinal hardware limits evaluation. No renal or ureteral calculi are visualize d. There is no hydronephrosis. 3. Cholecystectomy. 4. Extensive postsurgical changes of the spine. Thank you for allowing us to participate in the care of your patient. Dictated and Authenticated by: Mustapha Porter MD 04/27/2017 7:07 AM Central Time ([place] \T\ [facility]) FINAL REPORT NONCONTRAST ENHANCED CT IMAGES OF ABDOMEN AND PELVIS: HISTORY: 36-year-old female with history of abdominal pain, flank pain. This is the final report. Preliminary exam was performed by [facility]. Noncontrast enhanced CT images of the abdomen and pelvis were performed. FINDINGS: Extensive lower thoracic and lumbar fusion hardware is in place. The solid organs demonstrate no def inite evidence of abnormalities. No evidence of renal calculi seen. The gallbladder has been surgica lly removed. There is a right area of adnexal complex density possibly representing a right ovarian cyst or mass. Smaller left ovarian lesion also seen. Correlate with sonography electively. A normal appendix is seen. IMPRESSION: Possible bilateral ovarian complex lesions. Further workup using gynecologic consultation and sonogr aphic evaluation may be a consideration in this patient. POS: [facility]
[2017-04-27] MEDS ORDERED: Ondansetron HCl/PF 4 MG/2 ML Vial IVP PRN (10:21)
[2017-04-27] MEDS ORDERED: Ondansetron ODT 4 MG TAB PO PRN (10:22)
[2017-04-27 10:49] VITALS: BP 137/75; TEMP 98.4
[2017-04-27] MEDS: Sodium Chloride 0.9% 1,000 ML IV SCH ×2 (11:32→13:53)
[2017-04-27 13:15] VITALS: BMI 19.8
[2017-04-27 16:15] LABS: HBCM Index 0.12 S/CO (0-0.79); HBSAg Index 0.36 S/CO (0-0.99); Hep A IgM AB Non-Reactive (NonReactive); Hep A IgM S/CO 0.19 S/CO (0-0.79); Hep B Surf Ag Non-Reactive S/CO (NonReactive); Hep C IgG Ab Non-Reactive (NonReactive); Hep C Index 0.24 S/CO (0-0.79); Hepatitis B Core IGM Abs Non-Reactive (NonReactive)
[2017-04-27 17:53] LABS: Anion Gap 14 mmol/L (10-20); BUN (Urea Nitrogen) 30 mg/dL (7.0-18.7); Calc. Creatinine Clearance 62 mL/min (70-130); Carbon Dioxide 16 mmol/L (22-29); Chloride 114 mmol/L (98-107); Estimated GFR-MDRD 63; Glucose 114 mg/dL (70-105); Potassium 3.4 mmol/L (3.5-5.1); Sodium 141 mmol/L (136-145)
[2017-04-27 17:54] LABS: ALT (SGPT) 75 U/L (8-55); AST (SGOT) 94 U/L (5-34); Albumin 3.5 g/dL (3.5-5.0); Alkaline Phosphatase 85 U/L (40-150); Bilirubin, Total 1.8 mg/dL (0.2-1.2); Globulin 2.1 g/dL (2.4-3.5); Protein, Total 5.6 g/dL (6.0-8.3)
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
== END 2017-04-27 19:39 | disposition home or self-care (01) ==
LOC: BURERS 03:49 → BURMED 08:50
PROVIDERS: ADMIT Family Medicine; ATTEND Family Medicine
DX: R11.2 Nausea with vomiting, unspecified (principal); J45.909 Unspecified asthma, uncomplicated; G89.29 Other chronic pain; M54.9 Dorsalgia, unspecified; F32.9 Major depressive disorder, single episode, unspecified; F41.9 Anxiety disorder, unspecified; Z88.6 Allergy status to analgesic agent; Z88.5 Allergy status to narcotic agent; Z88.8 Allergy status to other drugs, medicaments and biological substances; Z79.51 Long term (current) use of inhaled steroids; Z79.899 Other long term (current) drug therapy; Z90.49 Acquired absence of other specified parts of digestive tract; Z98.890 Other specified postprocedural states
CPT/HCPCS: 74176; 80053; 80074; 80306; 81003; 81015; 81025; 82550; 83690; 85025; 96361; 96374; 96375; 96376; A4216; G0378; J0780; J2405; Q0162

== ENCOUNTER 2017-04-28 04:08 | Emergency (ER) | payer MEDICARE ==
[2017-04-28] MEDS ORDERED: Ondansetron ODT 4 MG TAB ONE (04:27)
== END 2017-04-28 04:27 | disposition home or self-care (01) ==
LOC: BURERS 04:08
DX: R11.2 Nausea with vomiting, unspecified (principal)
CPT/HCPCS: 99283; Q0162

== ENCOUNTER 2017-05-11 11:47 | Emergency (ER) | payer MEDICARE ==
[2017-05-11 12:28] LABS: Bilirubin Negative (Negative); Blood, Urine Trace (Negative); Clarity Clear (Clear); Glucose, Urine (Dipstick) Negative (Negative); Leukocyte Negative (Negative); Nitrite Negative (Negative); Protein, Urine (Dipstick) Negative (Neg-Trace); Specific Gravity, Urine 1.025 (1.005-1.030); Urobilinogen 0.2 mg/dL (0.2-1.0)
[2017-05-11 12:31] LABS: Pregnancy Test - Urine (BHCG) Negative (Negative); Pregu Control Background? CLEAR/WHITE (CLR/WHITE); Pregu Control Bar Appear? YES (CONTROL BAR); Specific Gravity 1.025 (1.002-1.036)
[2017-05-11 12:32] LABS: Bacteria/HPF Rare-Few HPF (None Seen); RBC/HPF 0-3 HPF (0-3); Squamous Epithelial 0-3 HPF (0-3); WBC/HPF 0-3 HPF (0-3)
--- NOTE | 2017-05-11 23:51 | RAD ---
CHEST TWO VIEWS 05/11/17 Comparison is made with the 01/18/17 study. The heart is normal in size and the lungs are clear. No infiltrate or effusion was seen. Both lungs are fully inflated. The mediastinum was unremarkable in appearance. IMPRESSION: No acute findings. POS: HOME
[2017-05-14 13:14] LABS: Chlamydia by PCR Not Detected (NotDetected); GC by PCR Not Detected (NotDetected)
== END 2017-05-11 13:01 | disposition home or self-care (01) ==
LOC: BURERS 11:47
DX: R30.0 Dysuria (principal); R50.9 Fever, unspecified; F32.9 Major depressive disorder, single episode, unspecified; J45.909 Unspecified asthma, uncomplicated; Z79.899 Other long term (current) drug therapy
CPT/HCPCS: 71020; 81003; 81015; 81025; 87086; 87491; 87591

== ENCOUNTER 2017-07-22 16:36 | Emergency (ER) | payer MEDICARE ==
[2017-07-22] MEDS ORDERED: Albuterol Sulfate 1.25 MG/3 ML NEB ONE (16:49)
[2017-07-22 17:07] LABS: pH (venous) 7.46 (7.35-7.45)
[2017-07-22 17:09] LABS: Base Excess -3.7 mEq/L (-2 - +2); Hemoglobin (Hb) 14.4 g/dL (11.7-15.5)
[2017-07-22 17:13] LABS: Hemoglobin 13.9 g/dL (12.0-16.0); Mean Corpuscular HGB CONC 33.4 g/dL (32.0-36.0); Mean Corpuscular Hemoglobin 30.2 pg (27.0-31.0); Mean Corpuscular Volume 90.5 fl (81.0-99.0); Mean Platelet Volume 7.5 fL (7.4-10.4); Platelet Count 205 thou/uL (130-400); RBC Distribution Width 11.7 % (11.5-14.5); White Blood Cell (WBC) Count 3.6 thou/uL (4.8-10.8)
[2017-07-22] MEDS ORDERED: hydrOXYzine 25 MG TAB ONE (17:14)
[2017-07-22 17:18] LABS: Anion Gap 15 mmol/L (10-20); BUN (Urea Nitrogen) 6 mg/dL (7.0-18.7); Calc. Creatinine Clearance 0 mL/min (70-130); Calcium 9.8 mg/dL (7.8-10.44); Carbon Dioxide 18 mmol/L (22-29); Chloride 111 mmol/L (98-107); Estimated GFR-MDRD 82; Sodium 141 mmol/L (136-145)
[2017-07-22 17:24] LABS: Glucose 55 mg/dL (70-105)
[2017-07-22] MEDS ORDERED: Potassium Chloride 20 MEQ TAB ONE (17:24)
[2017-07-22 17:36] LABS: Eosinophils 1 % (0-10); Lymphocytes 60 % (21-51); Monocytes 15 % (0-10)
--- NOTE | 2017-07-22 20:11 | RAD ---
PORTABLE CHEST: Date: 07-22-17 An AP portable film at 1655 is compared with a 05-11-17. FINDINGS: The heart is normal in size and the lungs are clear. No lobar consolidation or effusion was seen. Sp inal rods are in place as usual. No effusions are noted. IMPRESSION: No acute intracranial findings. POS: HOME
== END 2017-07-22 17:54 | disposition home or self-care (01) ==
LOC: BURERS 16:36
DX: E87.6 Hypokalemia (principal); R06.4 Hyperventilation; E16.2 Hypoglycemia, unspecified; F41.9 Anxiety disorder, unspecified; J45.909 Unspecified asthma, uncomplicated
CPT/HCPCS: 36415; 36416; 71010; 80048; 82805; 85025; 85379; 94640; 94760

== ENCOUNTER 2017-08-29 08:56 | Emergency (ER) | payer MEDICARE ==
[2017-08-29] MEDS ORDERED: AMOXicillin 250 MG CAP ONE (09:27)
== END 2017-08-29 09:32 | disposition home or self-care (01) ==
LOC: BURERS 08:56
DX: J02.9 Acute pharyngitis, unspecified (principal); J45.909 Unspecified asthma, uncomplicated; F41.9 Anxiety disorder, unspecified; Z79.891 Long term (current) use of opiate analgesic; Z79.899 Other long term (current) drug therapy
CPT/HCPCS: 99283

== ENCOUNTER 2017-10-03 14:06 | Emergency (ER) | payer MEDICARE | END 2017-10-03 14:25 | disposition home or self-care (01) | LOC: BURERS 14:06 | DX: H60.91 Unspecified otitis externa, right ear (principal); S20.229A Contusion of unspecified back wall of thorax, initial encounter; J45.909 Unspecified asthma, uncomplicated; F41.9 Anxiety disorder, unspecified; X58.XXXA Exposure to other specified factors, initial encounter | CPT/HCPCS: 99282 ==

== ENCOUNTER 2017-10-10 09:31 | Emergency (ER) | payer MEDICARE ==
[2017-10-10] MEDS ORDERED: Sulfameth/Trimethoprim DS 800-160mg TAB ONE (09:55)
[2017-10-10] MEDS ORDERED: Cephalexin 500 MG CAP ONE (09:55)
== END 2017-10-10 11:14 | disposition home or self-care (01) ==
LOC: BURERS 09:31
DX: T81.4XXA Infection following a procedure, initial encounter (principal); L03.312 Cellulitis of back [any part except buttock and flank]; J45.909 Unspecified asthma, uncomplicated; F41.9 Anxiety disorder, unspecified
CPT/HCPCS: 99283

== ENCOUNTER 2017-10-28 12:35 | Emergency (ER) | payer MEDICARE | END 2017-10-28 12:52 | disposition home or self-care (01) | LOC: BURERS 12:35 | DX: Z48.01 Encounter for change or removal of surgical wound dressing (principal); Z48.817 Encounter for surgical aftercare following surgery on the skin and subcutaneous tissue; J45.909 Unspecified asthma, uncomplicated; G89.29 Other chronic pain; M54.9 Dorsalgia, unspecified; F41.9 Anxiety disorder, unspecified | CPT/HCPCS: 99282 ==

== ENCOUNTER 2017-11-22 21:01 | Emergency (ER) | payer MEDICARE ==
--- NOTE | 2017-11-23 12:07 | RAD ---
PORTABLE CHEST: DATE: 11/22/17. COMPARISON: Comparison is made with an 07/22/17 study. FINDINGS: A right subclavian line has been added in the interval. No pneumothorax, pleural effusion, or focal infiltrate was seen. The patient is turned slightly to the side which distorts the mediastinum somew hat. The lungs are clear. Various rods are seen in the spine. The heart is normal in size. IMPRESSION: No acute thoracic findings. POS: HOME
== END 2017-11-22 21:53 | disposition home or self-care (01) ==
LOC: BURERS 21:01
DX: M79.601 Pain in right arm (principal); J45.909 Unspecified asthma, uncomplicated; F41.9 Anxiety disorder, unspecified; Z79.899 Other long term (current) drug therapy
CPT/HCPCS: 71045; J1642

== ENCOUNTER 2018-04-23 21:19 | Emergency (ER) | payer MEDICARE | END 2018-04-23 21:43 | disposition home or self-care (01) | LOC: BURERS 21:19 | DX: M62.838 Other muscle spasm (principal); J45.909 Unspecified asthma, uncomplicated; F41.9 Anxiety disorder, unspecified; Z79.899 Other long term (current) drug therapy | CPT/HCPCS: 99283 ==

== ENCOUNTER 2018-08-12 22:25 | Emergency (ER) | payer MEDICARE ==
[2018-08-12] MEDS ORDERED: Famotidine 20 MG TAB ONE (22:42)
[2018-08-12] MEDS ORDERED: diphenhydrAMINE 25 MG CAP ONE (22:42)
[2018-08-12] MEDS ORDERED: predniSONE 20 MG TAB ONE (22:42)
== END 2018-08-13 00:08 | disposition home or self-care (01) ==
LOC: BURERS 22:25
DX: T78.40XA Allergy, unspecified, initial encounter (principal); J45.909 Unspecified asthma, uncomplicated; F41.9 Anxiety disorder, unspecified; Z79.899 Other long term (current) drug therapy
CPT/HCPCS: 99283; J7506

== ENCOUNTER 2018-09-02 11:32 | Emergency (ER) | payer MEDICARE | END 2018-09-02 12:06 | disposition home or self-care (01) | LOC: BURERS 11:32 | DX: Z45.2 Encounter for adjustment and management of vascular access device (principal); J45.909 Unspecified asthma, uncomplicated; F41.9 Anxiety disorder, unspecified; Z79.51 Long term (current) use of inhaled steroids; Z79.899 Other long term (current) drug therapy; Z79.1 Long term (current) use of non-steroidal anti-inflammatories (NSAID) | CPT/HCPCS: 99283 ==

== ENCOUNTER 2018-09-05 08:40 | Emergency (ER) | payer MEDICARE ==
--- NOTE | 2018-09-05 10:03 | RAD ---
THREE VIEWS RIGHT FOOT: Comparison: None. History: 3rd and 4th metatarsal pain. FINDINGS: Three views of the right foot shows no evidence of acute fracture or dislocation. No degenerative lucía nges are seen. No soft tissue swelling is present. IMPRESSION: No evidence of acute osseous abnormality. POS: [facility]
== END 2018-09-05 09:55 | disposition home or self-care (01) ==
LOC: BURERS 08:40
DX: M79.671 Pain in right foot (principal); J45.909 Unspecified asthma, uncomplicated; F41.9 Anxiety disorder, unspecified

== ENCOUNTER 2018-11-16 17:02 | Emergency (ER) | payer MEDICARE ==
[2018-11-16] MEDS ORDERED: Bisacodyl 10 MG SUPP ONE (17:39)
[2018-11-16] MEDS ORDERED: Magnesium Citrate 300 ML BOT ONE (17:40)
== END 2018-11-16 17:50 | disposition home or self-care (01) ==
LOC: BURERS 17:02
DX: K59.00 Constipation, unspecified (principal); J45.909 Unspecified asthma, uncomplicated; F41.9 Anxiety disorder, unspecified
CPT/HCPCS: 99283

== ENCOUNTER 2018-12-18 16:57 | Emergency (ER) | payer MEDICARE ==
[2018-12-18 17:48] LABS: #Eosinphils 0.4 thou/uL (0.0-0.7); #Lymphocytes 1.2 thou/uL (1.20-3.40); #Monocytes 0.5 thou/uL (0.11-0.59); #Neutrophils 1.6 thou/uL (1.40-6.50); %Basophils 0.7 % (0.0-1.0); %Eosinophils 10.5 % (0.0-10.0); %Lymphocytes 32.7 % (21.0-51.0); %Monocytes 13.4 % (0.0-10.0); %Neutrophils 42.8 % (42.0-75.0); Hemoglobin 8.7 g/dL (12.0-16.0); Mean Corpuscular HGB CONC 31.8 g/dL (32.0-36.0); Mean Corpuscular Hemoglobin 26.8 pg (27.0-31.0); Mean Corpuscular Volume 84.2 fL (78.0-98.0); Mean Platelet Volume 5.3 fL (7.4-10.4); Platelet Count 307 thou/uL (130-400); RBC Distribution Width 13.6 % (11.5-14.5); Red Blood Cell (RBC) Count 3.23 mill/uL (4.20-5.40); White Blood Cell (WBC) Count 3.7 thou/uL (4.8-10.8)
[2018-12-18 18:06] LABS: ALT (SGPT) 24 U/L (8-55); AST (SGOT) 29 U/L (5-34); Albumin 3.7 g/dL (3.5-5.0); Alkaline Phosphatase 258 U/L (40-150); Anion Gap 13 mmol/L (10-20); BUN (Urea Nitrogen) 6 mg/dL (7.0-18.7); Bilirubin, Total 0.3 mg/dL (0.2-1.2); Calc. Creatinine Clearance 0 mL/min (70-130); Carbon Dioxide 26 mmol/L (22-29); Chloride 105 mmol/L (98-107); Estimated GFR-MDRD Greater than 90; Glucose 101 mg/dL (70-105); Potassium 3.8 mmol/L (3.5-5.1); Protein, Total 6.7 g/dL (6.0-8.3); Sodium 140 mmol/L (136-145)
[2018-12-18 18:09] LABS: BHCG - Serum Negative (NEGATIVE); Pregs Control Background? CLEAR/WHITE (CLR/WHITE); Pregs Control Bar Appear? YES (CONTROL BAR)
[2018-12-18 18:14] LABS: Bilirubin Negative (Negative); Blood, Urine Trace (Negative); Clarity Hazy (Clear); Glucose, Urine (Dipstick) Negative (Negative); Leukocyte Trace (Negative); Nitrite Negative (Negative); Protein, Urine (Dipstick) Trace mg/dL (Neg-Trace); Specific Gravity, Urine 1.015 (1.005-1.030); Urobilinogen 0.2 mg/dL (0.2-1.0); pH, Urine 7.5 (5.0-9.0)
[2018-12-18 18:19] LABS: Bacteria/HPF 3+ HPF (None Seen); RBC/HPF 0-3 HPF (0-3); WBC/HPF 0-3 HPF (0-3)
--- NOTE | 2018-12-18 19:07 | RAD ---
CHEST TWO VIEWS: 12/18/18 Comparison is made with a 11/22/17 study. In the interval, the patient has had recent removal of spinal rods. Skin clips are seen posteriorly. There is a patchy infiltrate in the right upper lobe suggestive of pneumonia. No other infiltrates ar e seen other than a few linear streaks in the left lung that are probably atelectasis. There are no e ffusions. The heart size is normal. A left subclavian catheter is present with its tip in the vicinit y of the right atrium. IMPRESSION: New right upper lobe infiltrate, presumably pneumonia. Findings discussed with Dr. Martinez at 1803 on 12/18/18. POS: HOME
--- NOTE | 2018-12-18 19:26 | CT ---
CT ANGIO OF THE CHEST 12/18/[address] of the chest was performed for evaluation of chest pain and shortness of breath. There has been recent surgery. A chest x-ray showed right upper lobe infiltrate. The timing of the study is not entirely optimal. The opacification of pulmonary arteries is less than desired yielding a low to moderate sensitivity study. No large clot was detected in the larger arter ies. It would be missed in the medium to smaller sized arteries. Indistinct haziness seen in the left pulmonary artery around the takeoff of the lobar vessels is felt to be due to artifact. No mediastin al mass was seen. There is no pericardial fluid. There is an extensive infiltrate in the posterior portion of the right upper lobe consistent with pne umonia. There are a few small patches of infiltrate in the right lower lobe and larger ones in the ba se of the left lower lobe. No large effusions are seen. The adrenal glands do not appear enlarged. The visible portions of the liver and spleen are unremarka ble. IMPRESSION: 1. Low to moderate sensitivity study showing no gross pulmonary embolism in the larger vessels. Clot in the medium to smaller vessels would be missed. 2. Right upper lobe pneumonia with lesser infiltrates in the left lower lobe and right lower lob e. Findings discussed with Dr. Martinez at 1900 on 12/18/18. POS: HOME
[2018-12-18] MEDS ORDERED: Morphine 4 MG/ML VIAL ONE ×3 (20:06→22:50)
[2018-12-18] MEDS ORDERED: Azithromycin 500 MG VIAL ONE (20:16)
[2018-12-18] MEDS ORDERED: Acetaminophen 500 MG TAB ONE (22:44)
[2018-12-18] MEDS ORDERED: diphenhydrAMINE 25 MG CAP ONE (22:50)
[2018-12-19] MEDS ORDERED: Morphine 4 MG/ML VIAL ONE ×2 (01:32→05:06)
== END 2018-12-19 06:02 | disposition short-term general hospital (02) ==
LOC: BURERS 16:57
DX: J18.9 Pneumonia, unspecified organism (principal); J45.909 Unspecified asthma, uncomplicated; F41.9 Anxiety disorder, unspecified; Z79.899 Other long term (current) drug therapy; Z79.51 Long term (current) use of inhaled steroids
CPT/HCPCS: 71046; 71275; 80053; 81003; 81015; 83605; 83880; 84443; 84703; 85025; 85379; 93005; 96361; 96365; 96366; 96375; 96376; J0456; J1956; J2270; Q0163

== ENCOUNTER 2019-01-19 11:35 | Emergency (ER) | payer MEDICARE ==
[2019-01-19 12:51] LABS: ALT (SGPT) 38 U/L (8-55); AST (SGOT) 33 U/L (5-34); Alkaline Phosphatase 163 U/L (40-150); Anion Gap 11 mmol/L (10-20); BUN (Urea Nitrogen) 6 mg/dL (7.0-18.7); Bilirubin, Total 0.4 mg/dL (0.2-1.2); Calc. Creatinine Clearance 0 mL/min (70-130); Calcium 9.1 mg/dL (7.8-10.44); Carbon Dioxide 24 mmol/L (22-29); Chloride 108 mmol/L (98-107); Estimated GFR-MDRD 84; Globulin 2.6 g/dL (2.4-3.5); Glucose 97 mg/dL (70-105); Potassium 3.5 mmol/L (3.5-5.1); Protein, Total 6.6 g/dL (6.0-8.3); Sodium 139 mmol/L (136-145)
[2019-01-19 12:52] LABS: #Basophils 0.1 thou/uL (0.0-0.2); #Eosinphils 0.6 thou/uL (0.0-0.7); #Lymphocytes 2.3 thou/uL (1.20-3.40); #Monocytes 0.4 thou/uL (0.11-0.59); #Neutrophils 2.1 thou/uL (1.40-6.50); %Basophils 1.4 % (0.0-1.0); %Eosinophils 10.9 % (0.0-10.0); %Lymphocytes 41.4 % (21.0-51.0); %Monocytes 7.7 % (0.0-10.0); %Neutrophils 38.6 % (42.0-75.0); Hemoglobin 10.1 g/dL (12.0-16.0); Mean Corpuscular Volume 83.8 fL (78.0-98.0); Mean Platelet Volume 7.2 fL (7.4-10.4); Platelet Count 245 thou/uL (130-400); Red Blood Cell (RBC) Count 3.89 mill/uL (4.20-5.40); White Blood Cell (WBC) Count 5.4 thou/uL (4.8-10.8)
== END 2019-01-19 13:57 | disposition short-term general hospital (02) ==
LOC: BURERS 11:35
DX: M79.622 Pain in left upper arm (principal); M25.512 Pain in left shoulder; J45.909 Unspecified asthma, uncomplicated; F41.9 Anxiety disorder, unspecified
CPT/HCPCS: 36415; 80053; 83605; 85025; 85379; 87040; 99284

== ENCOUNTER 2019-04-20 06:21 | Emergency (ER) | payer MEDICARE ==
[2019-04-20] MEDS ORDERED: Pregabalin 50 MG CAP PO SCH (07:00)
== END 2019-04-20 06:50 | disposition home or self-care (01) ==
LOC: BURERS 06:21
DX: F19.20 Other psychoactive substance dependence, uncomplicated (principal); J45.909 Unspecified asthma, uncomplicated; F41.9 Anxiety disorder, unspecified; Z79.899 Other long term (current) drug therapy; Z79.51 Long term (current) use of inhaled steroids
CPT/HCPCS: 99283

== ENCOUNTER 2019-12-25 15:30 | Emergency (ER) | payer MEDICARE ==
[2019-12-25] MEDS ORDERED: diphenhydrAMINE 25 MG CAP ONE (15:48)
[2019-12-25] MEDS ORDERED: Triamcinolone 40 MG/ML VIAL ONE (15:48)
== END 2019-12-25 16:37 | disposition home or self-care (01) ==
LOC: BURERS 15:30
DX: L27.0 Generalized skin eruption due to drugs and medicaments taken internally (principal); T50.905A Adverse effect of unspecified drugs, medicaments and biological substances, initial encounter; J45.909 Unspecified asthma, uncomplicated; F41.9 Anxiety disorder, unspecified; Z79.51 Long term (current) use of inhaled steroids; Z79.899 Other long term (current) drug therapy
CPT/HCPCS: 96372; 99282; Q0163; J3301

== ENCOUNTER 2020-06-20 05:30 | Emergency (ER) | payer MEDICARE ==
[2020-06-20] MEDS ORDERED: Acetaminophen 500 MG TAB ONE (05:45)
[2020-06-20 07:03] LABS: #Basophils 0.1 thou/uL (0.0-0.2); #Eosinphils 0.4 thou/uL (0.0-0.7); #Lymphocytes 0.9 thou/uL (1.20-3.40); #Monocytes 0.6 thou/uL (0.11-0.59); #Neutrophils 7.3 thou/uL (1.40-6.50); %Basophils 0.8 % (0.0-1.0); %Eosinophils 4.1 % (0.0-10.0); %Lymphocytes 9.2 % (21.0-51.0); %Monocytes 6.3 % (0.0-10.0); %Neutrophils 79.6 % (42.0-75.0); Mean Corpuscular HGB CONC 31.2 g/dL (32.0-36.0); Mean Corpuscular Hemoglobin 27.4 pg (27.0-31.0); Mean Corpuscular Volume 87.8 fL (78.0-98.0); Mean Platelet Volume 6.5 fL (7.4-10.4); Platelet Count 238 thou/uL (130-400); RBC Distribution Width 13.8 % (11.5-14.5); Red Blood Cell (RBC) Count 4.01 mill/uL (4.20-5.40); White Blood Cell (WBC) Count 9.2 thou/uL (4.8-10.8)
[2020-06-20 07:19] LABS: ALT (SGPT) 15 U/L (8-55); AST (SGOT) 21 U/L (5-34); Albumin 4.1 g/dL (3.5-5.0); Alkaline Phosphatase 108 U/L (40-110); Anion Gap 16 mmol/L (10-20); BUN (Urea Nitrogen) 6 mg/dL (7.0-18.7); Bilirubin, Total 0.7 mg/dL (0.2-1.2); Calc. Creatinine Clearance 0 mL/min (70-130); Calcium 8.7 mg/dL (7.8-10.44); Carbon Dioxide 23 mmol/L (22-29); Chloride 102 mmol/L (98-107); Estimated GFR-MDRD 75; Globulin 2.8 g/dL (2.4-3.5); Glucose 112 mg/dL (70-105); Potassium 3.5 mmol/L (3.5-5.1); Protein, Total 6.9 g/dL (6.0-8.3); Sodium 137 mmol/L (136-145)
[2020-06-20] MEDS ORDERED: Piperacillin/Tazobactam 4.5 GM VIAL ONE (07:19)
[2020-06-20] MEDS ORDERED: Azithromycin 500 MG VIAL ONE (07:19)
[2020-06-20] MEDS ORDERED: Sodium Chloride 0.9% 100 ML ONE (07:21)
--- NOTE | 2020-06-20 07:28 | RAD ---
PORTABLE CHEST: Date: 06/20/2020 An AP portable film at 0624 hours is compared with the 11/22/2017 study. There are diffuse patchy infiltrates throughout the lungs bilaterally that are a new finding. No pleu ral effusions are seen. The mediastinum is unremarkable. IMPRESSION: Diffuse patchy infiltrates. COVID should be in the differential diagnosis, along with other infectiou s etiologies. POS: HOME
== END 2020-06-20 08:52 | disposition short-term general hospital (02) ==
LOC: BURERS 05:30
DX: A41.9 Sepsis, unspecified organism (principal); J18.9 Pneumonia, unspecified organism; Z20.828 Contact with and (suspected) exposure to other viral communicable diseases; J45.909 Unspecified asthma, uncomplicated; F41.9 Anxiety disorder, unspecified; Z79.51 Long term (current) use of inhaled steroids; Z79.899 Other long term (current) drug therapy
CPT/HCPCS: 36415; 71045; 80053; 83605; 85025; 87040; 87081; 87430; 87804; 96365; 96367; J0456; J2543; J3490

== ENCOUNTER 2020-07-06 01:04 | Emergency (ER) | payer MEDICARE, OTHER ==
[2020-07-06 15:54] LABS: SARS-CoV-2 MS2 Positive; SARS-CoV-2 N Gene Positive; SARS-CoV-2 S Gene Positive; SARS-CoV-2 by NAA DETECTED (NotDetected); SARS-CoV-2 orf1ab Positive
== END 2020-07-06 01:31 | disposition home or self-care (01) ==
LOC: BURERS 01:04
DX: U07.1 COVID-19 (principal); J06.9 Acute upper respiratory infection, unspecified; J45.909 Unspecified asthma, uncomplicated; F41.9 Anxiety disorder, unspecified; Z79.899 Other long term (current) drug therapy
CPT/HCPCS: 87635; 99283; U0003

== ENCOUNTER 2020-11-13 06:44 | Emergency (ER) | payer MEDICARE ==
[2020-11-13] MEDS ORDERED: predniSONE 20 MG TAB ONE (07:25)
[2020-11-13] MEDS ORDERED: Bacitracin 1 PK ONE (07:45)
== END 2020-11-13 09:33 | disposition home or self-care (01) ==
LOC: BURERS 06:44
DX: M77.11 Lateral epicondylitis, right elbow (principal); Z79.899 Other long term (current) drug therapy; J45.909 Unspecified asthma, uncomplicated
CPT/HCPCS: J7512

== ENCOUNTER 2020-12-13 09:52 | Emergency (ER) | payer MEDICARE ==
[2020-12-13 10:38] LABS: #Basophils 0.1 thou/uL (0.0-0.2); #Eosinphils 0.2 thou/uL (0.0-0.7); #Monocytes 0.4 thou/uL (0.11-0.59); #Neutrophils 1.6 thou/uL (1.40-6.50); %Basophils 1.8 % (0.0-1.0); %Eosinophils 5.6 % (0.0-10.0); %Lymphocytes 46.1 % (21.0-51.0); %Monocytes 8.4 % (0.0-10.0); %Neutrophils 38.1 % (42.0-75.0); Hemoglobin 13.5 g/dL (12.0-16.0); Mean Corpuscular HGB CONC 31.3 g/dL (32.0-36.0); Mean Corpuscular Volume 86.1 fL (78.0-98.0); Mean Platelet Volume 8.5 fL (7.4-10.4); Platelet Count 274 thou/uL (130-400); RBC Distribution Width 14.3 % (11.5-14.5); Red Blood Cell (RBC) Count 4.99 mill/uL (4.20-5.40); White Blood Cell (WBC) Count 4.2 thou/uL (4.8-10.8)
[2020-12-13 10:53] LABS: ALT (SGPT) 15 U/L (8-55); AST (SGOT) 20 U/L (5-34); Albumin 4.3 g/dL (3.5-5.0); Alkaline Phosphatase 100 U/L (40-110); Anion Gap 16 mmol/L (10-20); BUN (Urea Nitrogen) 14 mg/dL (7.0-18.7); Bilirubin, Total 0.8 mg/dL (0.2-1.2); CK (CPK) 142 U/L (29-168); Calc. Creatinine Clearance 0 mL/min (70-130); Calcium 9.1 mg/dL (7.8-10.44); Carbon Dioxide 20 mmol/L (22-29); Chloride 109 mmol/L (98-107); Globulin 3.3 g/dL (2.4-3.5); Glucose 86 mg/dL (70-105); Lipase 34 U/L (8-78); Potassium 4.1 mmol/L (3.5-5.1); Protein, Total 7.6 g/dL (6.0-8.3); Sodium 141 mmol/L (136-145)
== END 2020-12-13 11:20 | disposition home or self-care (01) ==
LOC: BURERS 09:52
DX: R07.89 Other chest pain (principal); J45.909 Unspecified asthma, uncomplicated
CPT/HCPCS: 36415; 71045; 80053; 82550; 83690; 84484; 85025; 93005

== ENCOUNTER 2021-02-07 21:16 | Outpatient (CLI) | payer MEDICARE | END 2021-02-07 21:17 | disposition home or self-care (01) | LOC: BURRAD 21:16 | DX: M96.1 Postlaminectomy syndrome, not elsewhere classified (principal) | CPT/HCPCS: 72072; 72110 ==

== ENCOUNTER 2021-02-14 20:43 | Emergency (ER) | payer MEDICARE ==
[2021-02-14 21:13] LABS: Bilirubin Small (Negative); Blood, Urine Negative (Negative); Clarity Cloudy (Clear); Glucose, Urine (Dipstick) 100 mg/dL (Negative); Ketone, Urine 15 mg/dL (Negative); Leukocyte Negative (Negative); Nitrite Positive (Negative); Protein, Urine (Dipstick) 30 mg/dL (Neg-Trace); Urobilinogen 0.2 mg/dL (Less than 2); pH, Urine 5.5 (5.0-9.0)
[2021-02-14 21:19] LABS: Specific Gravity, Urine 1.032 (1.002-1.036)
[2021-02-14 21:31] LABS: Bacteria/HPF 1+ HPF (None Seen); RBC/HPF 0-3 HPF (0-3); Renal Epithelial 0-3 HPF (None Seen); Transitional Epithelial 0-3 HPF (None Seen); WBC/HPF 0-3 HPF (0-3)
[2021-02-14 21:32] LABS: Mucous/LPF 2+ LPF (<2+)
== END 2021-02-14 21:40 | disposition home or self-care (01) ==
LOC: BURERS 20:43
DX: N39.0 Urinary tract infection, site not specified (principal); J45.909 Unspecified asthma, uncomplicated; Z79.51 Long term (current) use of inhaled steroids
CPT/HCPCS: 81003; 81015; 87077; 87086; 87186; 99283

== ENCOUNTER 2021-04-24 20:04 | Inpatient (IN) | payer MEDICARE ==
[2021-04-24] MEDS ORDERED: hydrOXYzine 25 MG TAB ONE (20:43)
[2021-04-24] MEDS ORDERED: Acetaminophen 500 MG TAB ONE (20:43)
[2021-04-24 22:05] LABS: ALT (SGPT) 18 U/L (8-55); AST (SGOT) 30 U/L (5-34); Albumin 3.8 g/dL (3.5-5.0); Alkaline Phosphatase 116 U/L (40-110); Anion Gap 14 mmol/L (10-20); BUN (Urea Nitrogen) 7 mg/dL (7.0-18.7); Bilirubin, Total 0.6 mg/dL (0.2-1.2); Calc. Creatinine Clearance 0 mL/min (70-130); Calcium 7.8 mg/dL (7.8-10.44); Carbon Dioxide 26 mmol/L (22-29); Chloride 103 mmol/L (98-107); Globulin 2.8 g/dL (2.4-3.5); Glucose 108 mg/dL (70-105); Potassium 3.5 mmol/L (3.5-5.1); Protein, Total 6.6 g/dL (6.0-8.3); Sodium 139 mmol/L (136-145)
[2021-04-24 22:07] LABS: #Basophils 0.1 thou/uL (0.0-0.2); #Eosinphils 0.3 thou/uL (0.0-0.7); #Lymphocytes 1.5 thou/uL (1.20-3.40); #Monocytes 0.7 thou/uL (0.11-0.59); #Neutrophils 4.7 thou/uL (1.40-6.50); %Basophils 0.8 % (0.0-1.0); %Lymphocytes 20.3 % (21.0-51.0); %Monocytes 9.5 % (0.0-10.0); %Neutrophils 65.4 % (42.0-75.0); Hemoglobin 9.4 g/dL (12.0-16.0); Mean Corpuscular HGB CONC 32.5 g/dL (32.0-36.0); Mean Corpuscular Hemoglobin 28.6 pg (27.0-31.0); Mean Platelet Volume 6.6 fL (7.4-10.4); Platelet Count 213 thou/uL (130-400); RBC Distribution Width 17.3 % (11.5-14.5); Red Blood Cell (RBC) Count 3.29 mill/uL (4.20-5.40); White Blood Cell (WBC) Count 7.1 thou/uL (4.8-10.8)
[2021-04-24] MEDS ORDERED: Cefepime 2 GM VIAL ONE (22:16)
[2021-04-24] MEDS ORDERED: Sodium Chloride 0.9% 100 ML ONE (22:16)
[2021-04-24] MEDS ORDERED: Boostrix 0.5 ML (Tdap) VIAL ONE (22:16)
[2021-04-24 23:50] LABS: Bilirubin Negative (Negative); Blood, Urine Negative (Negative); Clarity Clear (Clear); Glucose, Urine (Dipstick) Negative (Negative); Ketone, Urine Negative (Negative); Leukocyte Negative (Negative); Nitrite Negative (Negative); Protein, Urine (Dipstick) Negative (Neg-Trace); pH, Urine 6.5 (5.0-9.0)
[2021-04-25 00:31] LABS: SARS-CoV-2 NAA Rapid Test Not Detected (NotDetected)
[2021-04-25] MEDS: Sodium Chloride 0.9% 1,000 ML IV SCH ×2 (01:30→18:46)
[2021-04-25] MEDS ORDERED: Ondansetron PF 4 MG/2 ML Vial IVP PRN (01:45)
[2021-04-25] MEDS ORDERED: Ondansetron ODT 4 MG TAB SL PRN (01:45)
[2021-04-25] MEDS ORDERED: Non-Formulary Item 1 EACH (Ventolin Hfa Inhaler [Ventolin Hfa Inhaler] 60 PUFF Aer) INH PRN (07:29)
[2021-04-25] MEDS ORDERED: Calcium Carbonate 500 MG ChewTAB PO PRN (07:31)
[2021-04-25] MEDS ORDERED: Albuterol 200 PUFF (6.7GM INHALER) INH PRN (07:44)
[2021-04-25] MEDS: Buprenorphine Hcl [Belbuca] 900 MCG Film PO SCH (08:59)
[2021-04-25] MEDS ORDERED: Non-Formulary Item 1 EACH (Fluticasone/Vilanterol [Breo Ellipta] 100 MCG/25 MCG Blst.W.De IH SCH (09:00)
[2021-04-25] MEDS ORDERED: DIAZEPAM 10 MG PO SCH (09:00)
[2021-04-25] MEDS ORDERED: BUPRENORPHINE HCL 900 MCG BC SCH (09:00)
[2021-04-25] MEDS: Pregabalin 50 MG CAP PO SCH ×3 (09:02→21:35)
[2021-04-25] MEDS: Diazepam 5 MG TAB PO SCH ×2 (09:04→21:36)
[2021-04-25] MEDS: Famotidine 20 MG TAB PO SCH ×2 (09:04→21:36)
[2021-04-25] MEDS: Cefepime 2 GM in Sodium Chloride 0.9% 100 ML IVPB SCH ×2 (09:04→22:30)
[2021-04-25] MEDS: Vancomycin HCl 1 GM in Sodium Chloride 0.9% 250 ML 250 ML IVPB SCH ×2 (09:05→21:34)
[2021-04-25] MEDS ORDERED: Albuterol Sulfate 2.5 mg/3 ml Neb NEB PRN (13:30)
[2021-04-25] MEDS: Acetaminophen 325 MG TAB PO PRN ×2 (14:51→21:33)
[2021-04-25] MEDS ORDERED: Sodium Chloride 0.9% 1,000 ML IV SCH (19:00)
[2021-04-25] MEDS ORDERED: [UNRECOGNIZED DRUG - OTHER] INH SCH (19:00)
[2021-04-25] MEDS: Mometasone/Formoterol 60 PUFF AER INH SCH (21:54)
[2021-04-26 07:32] LABS: ALT (SGPT) 14 U/L (8-55); AST (SGOT) 19 U/L (5-34); Albumin 3.6 g/dL (3.5-5.0); Alkaline Phosphatase 122 U/L (40-110); Anion Gap 15 mmol/L (10-20); BUN (Urea Nitrogen) 5 mg/dL (7.0-18.7); Bilirubin, Total 0.4 mg/dL (0.2-1.2); Calc. Creatinine Clearance 116 mL/min (70-130); Calcium 7.4 mg/dL (7.8-10.44); Carbon Dioxide 23 mmol/L (22-29); Chloride 109 mmol/L (98-107); Globulin 2.4 g/dL (2.4-3.5); Glucose 105 mg/dL (70-105); Potassium 3.9 mmol/L (3.5-5.1); Sodium 143 mmol/L (136-145)
[2021-04-26 07:40] LABS: Hemoglobin 9.2 g/dL (12.0-16.0); Mean Corpuscular HGB CONC 31.6 g/dL (32.0-36.0); Mean Corpuscular Hemoglobin 28.6 pg (27.0-31.0); Mean Corpuscular Volume 90.3 fL (78.0-98.0); Mean Platelet Volume 6.1 fL (7.4-10.4); Platelet Count 191 thou/uL (130-400); RBC Distribution Width 18.4 % (11.5-14.5); Red Blood Cell (RBC) Count 3.22 mill/uL (4.20-5.40); White Blood Cell (WBC) Count 8.9 thou/uL (4.8-10.8)
[2021-04-26 07:45] LABS: Eosinophils 2 % (0-10); Lymphocytes 15 % (21-51); MDiff Complete? YES; Monocytes 10 % (0-10); Neutrophil 73 % (42-75); Platelet Morphology Comment Appears Adequate
[2021-04-26] MEDS: Buprenorphine Hcl [Belbuca] 900 MCG Film PO SCH ×2 (08:20→21:45)
[2021-04-26] MEDS: Famotidine 20 MG TAB PO SCH ×2 (08:22→21:42)
[2021-04-26] MEDS: Pregabalin 50 MG CAP PO SCH ×3 (08:22→21:42)
[2021-04-26] MEDS: Acetaminophen 325 MG TAB PO PRN (08:23)
[2021-04-26] MEDS: Diazepam 5 MG TAB PO SCH ×2 (08:24→21:44)
[2021-04-26] MEDS: Vancomycin HCl 1 GM in Sodium Chloride 0.9% 250 ML 250 ML IVPB SCH ×2 (08:26→21:46)
[2021-04-26 08:31] LABS: Vancomycin, Trough 8.1 ug/mL
[2021-04-26] MEDS: Mometasone/Formoterol 60 PUFF AER INH SCH ×2 (08:34→21:47)
[2021-04-26] MEDS ORDERED: Vancomycin HCl 500 MG in Sodium Chloride 0.9% 100 ML IVPB SCH (09:15)
[2021-04-26] MEDS: Cefepime 2 GM in Sodium Chloride 0.9% 100 ML IVPB SCH (11:57)
[2021-04-26] MEDS: Triple Antibiotic Oint 1 GM Packet TOP SCH ×2 (15:14→21:41)
[2021-04-26] MEDS: Vancomycin HCl 500 MG in Sodium Chloride 0.9% 100 ML IVPB SCH (21:47)
[2021-04-27] MEDS: Cefepime 2 GM in Sodium Chloride 0.9% 100 ML IVPB SCH ×3 (00:36→12:28)
[2021-04-27] MEDS: Acetaminophen 325 MG TAB PO PRN (06:12)
[2021-04-27] MEDS: Buprenorphine Hcl [Belbuca] 900 MCG Film PO SCH ×2 (08:08→22:20)
[2021-04-27] MEDS: Diazepam 5 MG TAB PO SCH ×2 (12:24→22:17)
[2021-04-27] MEDS: Triple Antibiotic Oint 1 GM Packet TOP SCH ×3 (12:24→22:16)
[2021-04-27] MEDS: Pregabalin 50 MG CAP PO SCH ×3 (12:25→22:16)
[2021-04-27] MEDS: Famotidine 20 MG TAB PO SCH ×2 (12:25→22:17)
[2021-04-27] MEDS: Mometasone/Formoterol 60 PUFF AER INH SCH ×2 (12:26→22:21)
[2021-04-27] MEDS: Vancomycin HCl 1 GM in Sodium Chloride 0.9% 250 ML 250 ML IVPB SCH ×2 (12:53→15:02)
[2021-04-27] MEDS: Vancomycin HCl 500 MG in Sodium Chloride 0.9% 100 ML IVPB SCH ×2 (12:54→15:03)
[2021-04-28 01:21] LABS: Vancomycin, Trough 13.1 ug/mL
[2021-04-28] MEDS: Cefepime 2 GM in Sodium Chloride 0.9% 100 ML IVPB SCH ×2 (01:38→14:16)
[2021-04-28] MEDS: Vancomycin HCl 500 MG in Sodium Chloride 0.9% 100 ML IVPB SCH ×2 (02:23→16:56)
[2021-04-28] MEDS: Vancomycin HCl 1 GM in Sodium Chloride 0.9% 250 ML 250 ML IVPB SCH ×2 (02:25→16:55)
[2021-04-28] MEDS: Diazepam 5 MG TAB PO SCH ×2 (11:05→21:51)
[2021-04-28] MEDS: Famotidine 20 MG TAB PO SCH ×2 (11:07→21:53)
[2021-04-28] MEDS: Triple Antibiotic Oint 1 GM Packet TOP SCH ×3 (11:08→21:53)
[2021-04-28] MEDS: Mometasone/Formoterol 60 PUFF AER INH SCH (11:08)
[2021-04-28] MEDS: Buprenorphine Hcl [Belbuca] 900 MCG Film PO SCH ×2 (11:09→21:55)
[2021-04-28] MEDS: Pregabalin 50 MG CAP PO SCH ×3 (11:09→21:52)
[2021-04-28] MEDS: [UNRECOGNIZED DRUG - OTHER] INH SCH (21:56)
[2021-04-28] MEDS: Fluconazole 100 MG TAB PO SCH (22:03)
[2021-04-29] MEDS: Cefepime 2 GM in Sodium Chloride 0.9% 100 ML IVPB SCH ×2 (01:09→12:39)
[2021-04-29] MEDS: Vancomycin HCl 1 GM in Sodium Chloride 0.9% 250 ML 250 ML IVPB SCH ×2 (01:15→14:01)
[2021-04-29] MEDS: Vancomycin HCl 500 MG in Sodium Chloride 0.9% 100 ML IVPB SCH ×2 (03:15→14:05)
[2021-04-29] MEDS: Diazepam 5 MG TAB PO SCH ×2 (08:29→21:11)
[2021-04-29] MEDS: Triple Antibiotic Oint 1 GM Packet TOP SCH ×3 (08:30→21:09)
[2021-04-29] MEDS: Pregabalin 50 MG CAP PO SCH ×3 (08:30→21:10)
[2021-04-29] MEDS: [UNRECOGNIZED DRUG - OTHER] INH SCH ×2 (08:35→21:18)
[2021-04-29] MEDS: Famotidine 20 MG TAB PO SCH ×2 (08:38→21:10)
[2021-04-29] MEDS: Buprenorphine Hcl [Belbuca] 900 MCG Film PO SCH ×2 (08:47→21:11)
[2021-04-29] MEDS: Clindamycin 150 MG CAP PO SCH (21:09)
[2021-04-29] MEDS: Fluconazole 100 MG TAB PO SCH (21:16)
[2021-04-30] MEDS: Clindamycin 150 MG CAP PO SCH ×3 (02:22→17:44)
[2021-04-30] MEDS: Acetaminophen 325 MG TAB PO PRN (04:59)
[2021-04-30] MEDS: Pregabalin 50 MG CAP PO SCH ×2 (07:41→14:51)
[2021-04-30] MEDS: Famotidine 20 MG TAB PO SCH (07:42)
[2021-04-30] MEDS: Triple Antibiotic Oint 1 GM Packet TOP SCH ×2 (07:43→14:52)
[2021-04-30] MEDS: Buprenorphine Hcl [Belbuca] 900 MCG Film PO SCH (07:44)
[2021-04-30] MEDS: [UNRECOGNIZED DRUG - OTHER] INH SCH (07:46)
[2021-04-30] MEDS ORDERED: Floranex 1 GM Packet PO SCH (09:00)
[2021-04-30] MEDS: Diazepam 5 MG TAB PO SCH (09:07)
[2021-04-30 17:29] VITALS: BP 124/68; TEMP 98
== END 2021-04-30 18:15 | disposition home or self-care (01) | DRG 871 ==
LOC: BURERS 20:04 → BURMED 22:40
PROVIDERS: ADMIT Family Medicine; ATTEND Family Medicine
DX: A41.9 Sepsis, unspecified organism (principal); J15.9 Unspecified bacterial pneumonia; L03.113 Cellulitis of right upper limb; J45.909 Unspecified asthma, uncomplicated; G89.4 Chronic pain syndrome; B37.9 Candidiasis, unspecified; M54.9 Dorsalgia, unspecified; F41.9 Anxiety disorder, unspecified; Z20.822 Contact with and (suspected) exposure to COVID-19; Z90.49 Acquired absence of other specified parts of digestive tract; Z98.890 Other specified postprocedural states; Z88.8 Allergy status to other drugs, medicaments and biological substances; Z79.899 Other long term (current) drug therapy; Z79.51 Long term (current) use of inhaled steroids; Z87.891 Personal history of nicotine dependence
CPT/HCPCS: 36415; 71046; 80053; 80202; 81003; 83605; 85025; 87040; 87086; 90471; 90715; 96365; 96367; J0692; J3370; J3490; J7050; U0002

== ENCOUNTER 2021-05-03 21:54 | Emergency (ER) | payer MEDICARE ==
[2021-05-03 23:04] LABS: #Eosinphils 0.6 thou/uL (0.0-0.7); #Lymphocytes 1.7 thou/uL (1.20-3.40); #Monocytes 0.5 thou/uL (0.11-0.59); #Neutrophils 2.5 thou/uL (1.40-6.50); %Basophils 0.8 % (0.0-1.0); %Eosinophils 11.9 % (0.0-10.0); %Lymphocytes 31.9 % (21.0-51.0); %Monocytes 9.2 % (0.0-10.0); %Neutrophils 46.2 % (42.0-75.0); Hemoglobin 8.8 g/dL (12.0-16.0); Mean Corpuscular HGB CONC 30.4 g/dL (32.0-36.0); Mean Corpuscular Hemoglobin 28.3 pg (27.0-31.0); Mean Corpuscular Volume 93.1 fL (78.0-98.0); Mean Platelet Volume 6.3 fL (7.4-10.4); Platelet Count 264 thou/uL (130-400); Red Blood Cell (RBC) Count 3.09 mill/uL (4.20-5.40); White Blood Cell (WBC) Count 5.3 thou/uL (4.8-10.8)
[2021-05-03 23:12] LABS: ALT (SGPT) 15 U/L (8-55); AST (SGOT) 19 U/L (5-34); Albumin 3.8 g/dL (3.5-5.0); Alkaline Phosphatase 169 U/L (40-110); Anion Gap 13 mmol/L (10-20); BUN (Urea Nitrogen) 8 mg/dL (7.0-18.7); Bilirubin, Total 0.3 mg/dL (0.2-1.2); Calc. Creatinine Clearance 0 mL/min (70-130); Calcium 9.5 mg/dL (7.8-10.44); Carbon Dioxide 29 mmol/L (22-29); Chloride 104 mmol/L (98-107); Globulin 3.2 g/dL (2.4-3.5); Glucose 76 mg/dL (70-105); Potassium 4.1 mmol/L (3.5-5.1); Sodium 142 mmol/L (136-145)
== END 2021-05-03 23:29 | disposition home or self-care (01) ==
LOC: BURERS 21:54
DX: L03.113 Cellulitis of right upper limb (principal); L03.114 Cellulitis of left upper limb; S80.812A Abrasion, left lower leg, initial encounter; S80.811A Abrasion, right lower leg, initial encounter; J45.909 Unspecified asthma, uncomplicated; X58.XXXA Exposure to other specified factors, initial encounter
CPT/HCPCS: 36415; 71045; 80053; 83605; 85025

== ENCOUNTER 2021-05-23 14:07 | Emergency (ER) | payer MEDICARE | END 2021-05-23 14:38 | disposition home or self-care (01) | LOC: BURERS 14:07 | DX: M79.601 Pain in right arm (principal); R00.0 Tachycardia, unspecified; R06.2 Wheezing; R06.02 Shortness of breath; Z79.899 Other long term (current) drug therapy | CPT/HCPCS: 99283 ==